=== PATIENT | female | born 1965 | race African-American/Black ===

== ENCOUNTER 2021-04-05 15:31 | Inpatient (IN) | payer MEDICARE ==
[~2021-04-05] VITALS: Ht 167.6 cm; Wt 157.4 kg
[2021-04-05] MEDS ORDERED: SODIUM CHLORIDE 0.9% 1,000 ML IV ONE (16:30)
[2021-04-05] MEDS ORDERED: DEXAMETHASONE 10 MG/ML VIAL IV ONE (16:30)
[2021-04-05 16:33] LABS: BASOPHILS % 0.6 % (0.0-2.0); EOSINOPHILS % 0.1 % (0.0-5.0); HEMATOCRIT. 40.1 % (36.0-48.0); HEMOGLOBIN. 13.3 g/dL (12.0-16.0); LYMPHOCYTES % 11.6 % (20.0-50.0); MEAN CORPUSCULAR HEMOGLOBIN 28.7 pg (28.0-32.0); MEAN CORPUSCULAR VOLUME 86.2 fL (81.0-99.0); MEAN PLATELET VOLUME 9.9 fl (7.4-10.4); MONOCYTES % 5.6 % (2.0-8.0); NEUTROPHILS % 82.1 % (40.0-76.0); PLATELET 254 x1000/uL (130-400); RED BLOOD CELL COUNT 4.65 mill/uL (4.2-5.4); RED CELL DISTRIBUTION WIDTH 14.9 % (11.6-14.6)
[2021-04-05 16:36] LABS: CHLORIDE 101 mEq/L (98-107)
[2021-04-05 16:58] LABS: BG BASE EXCESS 0.2 mmol/L (-2.0-2.0); BG CARBOXYHEMOGLOBIN 0.6 % (0.5-1.5); BG DEOXYHEMOGLOBIN 1.3 % (0.0-5.0); BG HCO3 ACT 24.6 mmol/L (22.0-26.0); BG OXYGEN SATURATION 98.7 % (92.0-98.5); BG OXYHEMOGLOBIN 98.1 % (94.0-97.0); BG PCO2 39.5 mmHg (35.0-45.0); BG PH 7.413 (7.350-7.450); BG PO2 137.8 mmHg (75.0-100.0); BG SAMPLE SITE RIGHT RADIAL; BG TOTAL HEMOGLOBIN 13.4 g/dL (12.0-18.0); BG VENT MODE MASK - NRB
[2021-04-05] MEDS ORDERED: DOXYCYCLINE HYCLATE 100 MG/VIAL IV ONE (17:00)
[2021-04-05] MEDS ORDERED: CEFTRIAXONE 1 G PREMIX 50 ML IV NR (17:00)
[2021-04-05] MEDS ORDERED: DOXYCYCLINE 100MG in DEXTROSE 5% WATER 100ML IV NR (17:15)
[2021-04-05 22:00] VITALS: BP 152/80
[2021-04-05] MEDS: MORPHINE SULFATE 2 MG/ML CPJ (NOT FOR IM USE) IV PRN (23:24)
[2021-04-05] MEDS: DIPHENHYDRAMINE 50MG/ML VIAL IV PRN (23:43)
[2021-04-06] VITALS: BP 146/82
[2021-04-06] MEDS: AZITHROMYCIN 500 MG in DEXT 5% WATER 250 ML IV SCH (01:14)
[2021-04-06] MEDS: SODIUM CHL 0.9% + KCL 20MEQ/L 1,000 ML IV SCH ×2 (01:14→17:13)
[2021-04-06] MEDS: ZOLPIDEM TARTRATE 5MG TABLET PO PRN ×2 (01:49→20:35)
[2021-04-06 04:00] VITALS: BP 144/79
[2021-04-06 08:00] VITALS: BP 139/85
[2021-04-06] MEDS ORDERED: ENOXAPARIN 30MG/0.3ML SYR SUBCUT SCH (09:00)
[2021-04-06] MEDS: DEXAMETHASONE 10 MG/ML VIAL IV SCH (09:20)
[2021-04-06] MEDS: FAMOTIDINE 20MG TABLET PO SCH ×2 (09:21→20:34)
[2021-04-06 09:25] LABS: BASOPHILS % 0.5 % (0.0-2.0); HEMATOCRIT. 40.2 % (36.0-48.0); HEMOGLOBIN. 12.9 g/dL (12.0-16.0); LYMPHOCYTES % 10.3 % (20.0-50.0); MEAN CORPUSCULAR HEMOGLOBIN 28.3 pg (28.0-32.0); MEAN CORPUSCULAR VOLUME 88.4 fL (81.0-99.0); MEAN PLATELET VOLUME 10.2 fl (7.4-10.4); MONOCYTES % 3.3 % (2.0-8.0); NEUTROPHILS % 85.9 % (40.0-76.0); PLATELET 269 x1000/uL (130-400); RED BLOOD CELL COUNT 4.55 mill/uL (4.2-5.4); RED CELL DISTRIBUTION WIDTH 15.1 % (11.6-14.6)
[2021-04-06] MEDS: MORPHINE SULFATE 2 MG/ML CPJ (NOT FOR IM USE) IV PRN (09:32)
[2021-04-06 09:36] LABS: CHLORIDE 104 mEq/L (98-107)
[2021-04-06 09:46] LABS: CREATINE KINASE 380 IU/L (26-192)
[2021-04-06 09:49] LABS: CREATINE KINASE MB FRACTION 2.4 ng/mL (0.5-3.6)
[2021-04-06] MEDS: ALBUTEROL 6.7GM HFA INHALER ORI SCH ×2 (11:20→17:13)
[2021-04-06 12:00] VITALS: BP 126/86
[2021-04-06] MEDS: DIPHENHYDRAMINE 50MG/ML VIAL IV PRN ×2 (12:56→20:35)
[2021-04-06 16:00] VITALS: BP 123/81
[2021-04-06 16:40] LABS: CREATINE KINASE MB FRACTION 3.5 ng/mL (0.5-3.6)
[2021-04-06 16:41] LABS: CREATINE KINASE 319 IU/L (26-192)
[2021-04-06] MEDS ORDERED: CEFTRIAXONE 1 G PREMIX 50 ML IV SCH (17:00)
[2021-04-06] MEDS: CEFTRIAXONE 1,000 MG in DEXTROSE 5% WATER 50 ML IV SCH (17:13)
[2021-04-06 20:00] VITALS: BP 137/74
[2021-04-06] MEDS: ENOXAPARIN 40MG/0.4ML SYR SUBCUT SCH (20:34)
[2021-04-06] MEDS ORDERED: PROCHLORPERAZINE 10MG/2ML VIAL IV PRN (21:30)
[2021-04-06] MEDS ORDERED: MORPHINE SULFATE 2 MG/ML CPJ (NOT FOR IM USE) IV PRN (21:30)
[2021-04-06] MEDS ORDERED: NALOXONE HCL 0.4MG/ML VIAL IV PRN (21:45)
[2021-04-07] VITALS: BP 99/44
[2021-04-07] MEDS: AZITHROMYCIN 500 MG in DEXT 5% WATER 250 ML IV SCH ×2 (00:05→23:25)
[2021-04-07] MEDS: ACETAMINOPHEN 325MG TABLET PO PRN ×2 (03:48→22:21)
[2021-04-07 04:00] VITALS: BP 154/83
[2021-04-07 07:29] LABS: BASOPHILS % 0.2 % (0.0-2.0); HEMATOCRIT. 43.7 % (36.0-48.0); HEMOGLOBIN. 13.6 g/dL (12.0-16.0); LYMPHOCYTES % 9.8 % (20.0-50.0); MEAN CORPUSCULAR HEMOGLOBIN 28.4 pg (28.0-32.0); MEAN CORPUSCULAR VOLUME 91.3 fL (81.0-99.0); MEAN PLATELET VOLUME 10.3 fl (7.4-10.4); MONOCYTES % 4.6 % (2.0-8.0); NEUTROPHILS % 85.4 % (40.0-76.0); PLATELET 336 x1000/uL (130-400); RED BLOOD CELL COUNT 4.79 mill/uL (4.2-5.4); RED CELL DISTRIBUTION WIDTH 15.1 % (11.6-14.6)
[2021-04-07 07:39] LABS: CHLORIDE 108 mEq/L (98-107)
[2021-04-07 07:51] LABS: CREATINE KINASE 203 IU/L (26-192)
[2021-04-07 07:52] LABS: CREATINE KINASE MB FRACTION 2.6 ng/mL (0.5-3.6)
[2021-04-07 08:00] VITALS: BP 121/96
[2021-04-07] MEDS: FAMOTIDINE 20MG TABLET PO SCH ×2 (09:25→22:21)
[2021-04-07] MEDS: ENOXAPARIN 40MG/0.4ML SYR SUBCUT SCH ×2 (09:26→22:21)
[2021-04-07] MEDS: DEXAMETHASONE 10 MG/ML VIAL IV SCH (09:26)
[2021-04-07] MEDS: ALBUTEROL 6.7GM HFA INHALER ORI SCH ×3 (09:27→22:28)
[2021-04-07] MEDS: LORAZEPAM 0.5MG TABLET PO PRN ×2 (11:28→22:21)
[2021-04-07] MEDS ORDERED: LIDOCAINE HCL/PF 1% 2ML VIAL ONE (14:34)
[2021-04-07 15:11] LABS: BG BASE EXCESS 1.7 mmol/L (-2.0-2.0); BG CARBOXYHEMOGLOBIN 0.5 % (0.5-1.5); BG DEOXYHEMOGLOBIN 5.5 % (0.0-5.0); BG METHEMOGLOBIN 0.1 % (0.0-1.5); BG OXYGEN SATURATION 94.5 % (92.0-98.5); BG OXYHEMOGLOBIN 93.9 % (94.0-97.0); BG PCO2 39.6 mmHg (35.0-45.0); BG PH 7.435 (7.350-7.450); BG PO2 70.6 mmHg (75.0-100.0); BG SAMPLE SITE RIGHT RADIAL; BG TOTAL HEMOGLOBIN 14.4 g/dL (12.0-18.0); BG VENT MODE MASK - NRB
[2021-04-07] MEDS ORDERED: HYDROCORTISONE 1% RECTAL CREAM 30GM PR PRN (15:15)
[2021-04-07] MEDS: CEFTRIAXONE 1,000 MG in DEXTROSE 5% WATER 50 ML IV SCH (15:39)
[2021-04-07 16:00] VITALS: BP 130/75
[2021-04-07] MEDS: ONDANSETRON HCL 4MG/2ML INJ IV PRN (18:37)
[2021-04-07] MEDS: GUAIFENESIN-DM 200MG-20MG/10ML UDC PO PRN ×2 (18:38→23:24)
[2021-04-07 20:00] VITALS: BP 145/71
[2021-04-07] MEDS: ZOLPIDEM TARTRATE 5MG TABLET PO PRN (22:21)
[2021-04-08] VITALS: BP 146/48
[2021-04-08] MEDS: DIPHENHYDRAMINE 50MG/ML VIAL IV PRN (01:17)
[2021-04-08] MEDS: LORAZEPAM 0.5MG TABLET PO PRN (03:51)
[2021-04-08] MEDS: ACETAMINOPHEN 325MG TABLET PO PRN ×2 (03:51→16:17)
[2021-04-08 04:00] VITALS: BP 160/97
[2021-04-08 05:00] LABS: BG BASE EXCESS 4.7 mmol/L (-2.0-2.0); BG CARBOXYHEMOGLOBIN 0.5 % (0.5-1.5); BG DEOXYHEMOGLOBIN 2.5 % (0.0-5.0); BG FRACTION INSPIRED OXYGEN 100; BG HCO3 ACT 30.2 mmol/L (22.0-26.0); BG METHEMOGLOBIN 0.4 % (0.0-1.5); BG OXYGEN SATURATION 97.5 % (92.0-98.5); BG OXYHEMOGLOBIN 96.6 % (94.0-97.0); BG PCO2 48.1 mmHg (35.0-45.0); BG PH 7.416 (7.350-7.450); BG PO2 99.5 mmHg (75.0-100.0); BG SAMPLE SITE RIGHT RADIAL; BG TOTAL HEMOGLOBIN 14.1 g/dL (12.0-18.0); BG VENT MODE MASK - BIPAP
[2021-04-08 08:00] VITALS: BP 110/80
[2021-04-08] MEDS: DEXAMETHASONE 10 MG/ML VIAL IV SCH ×2 (09:00→12:48)
[2021-04-08] MEDS: ALBUTEROL 6.7GM HFA INHALER ORI SCH ×4 (09:00→20:55)
[2021-04-08] MEDS: FAMOTIDINE 20MG TABLET PO SCH ×2 (09:53→20:54)
[2021-04-08] MEDS: ENOXAPARIN 40MG/0.4ML SYR SUBCUT SCH ×2 (09:53→20:55)
[2021-04-08 12:00] VITALS: BP 132/76
[2021-04-08] MEDS: CEFTRIAXONE 1,000 MG in DEXTROSE 5% WATER 50 ML IV SCH (15:50)
[2021-04-08 16:00] VITALS: BP 152/77
[2021-04-08 20:00] VITALS: BP 110/57
[2021-04-09] VITALS: BP 114/66
[2021-04-09] MEDS: AZITHROMYCIN 500 MG in DEXT 5% WATER 250 ML IV SCH (00:13)
[2021-04-09] MEDS: ACETAMINOPHEN 325MG TABLET PO PRN ×3 (00:13→16:28)
[2021-04-09 04:00] VITALS: BP 135/74
[2021-04-09 08:00] VITALS: BP 140/81
[2021-04-09] MEDS: FAMOTIDINE 20MG TABLET PO SCH ×2 (08:35→20:06)
[2021-04-09] MEDS: ENOXAPARIN 40MG/0.4ML SYR SUBCUT SCH ×2 (08:36→20:14)
[2021-04-09] MEDS: DEXAMETHASONE 10 MG/ML VIAL IV SCH (08:36)
[2021-04-09] MEDS: ALBUTEROL 6.7GM HFA INHALER ORI SCH ×4 (08:36→20:14)
[2021-04-09 12:00] VITALS: BP 92/52
[2021-04-09 16:00] VITALS: BP 119/63
[2021-04-09] MEDS: CEFTRIAXONE 1,000 MG in DEXTROSE 5% WATER 50 ML IV SCH (16:03)
[2021-04-09 16:07] LABS: BG BASE EXCESS 5.1 mmol/L (-2.0-2.0); BG CARBOXYHEMOGLOBIN 0.3 % (0.5-1.5); BG DEOXYHEMOGLOBIN 4.9 % (0.0-5.0); BG FRACTION INSPIRED OXYGEN 100; BG HCO3 ACT 30.1 mmol/L (22.0-26.0); BG METHEMOGLOBIN 1.1 % (0.0-1.5); BG OXYHEMOGLOBIN 93.7 % (94.0-97.0); BG PCO2 46.1 mmHg (35.0-45.0); BG PH 7.433 (7.350-7.450); BG PO2 79.6 mmHg (75.0-100.0); BG SAMPLE SITE RIGHT RADIAL; BG TOTAL HEMOGLOBIN 12.9 g/dL (12.0-18.0); BG TOTAL RESPIRATORY RATE 44 b/min; BG VENT MODE MASK - BIPAP
[2021-04-09 20:00] VITALS: BP 112/69
[2021-04-09] MEDS: DIPHENHYDRAMINE 50MG/ML VIAL IV PRN (20:05)
[2021-04-09] MEDS: ONDANSETRON HCL 4MG/2ML INJ IV PRN (20:33)
[2021-04-10] VITALS: BP 110/67
[2021-04-10] MEDS: AZITHROMYCIN 500 MG in DEXT 5% WATER 250 ML IV SCH (00:15)
[2021-04-10 04:00] VITALS: BP 112/73
[2021-04-10] MEDS ORDERED: LIDOCAINE HCL/PF 1% 2ML VIAL ONE (05:00)
[2021-04-10 07:54] LABS: BASOPHILS % 0.2 % (0.0-2.0); EOSINOPHILS % 0.1 % (0.0-5.0); HEMATOCRIT. 36.6 % (36.0-48.0); HEMOGLOBIN. 11.6 g/dL (12.0-16.0); LYMPHOCYTES % 7.6 % (20.0-50.0); MEAN CORPUSCULAR HEMOGLOBIN 28.1 pg (28.0-32.0); MEAN CORPUSCULAR VOLUME 88.3 fL (81.0-99.0); MEAN PLATELET VOLUME 9.8 fl (7.4-10.4); NEUTROPHILS % 89.1 % (40.0-76.0); PLATELET 329 x1000/uL (130-400); RED BLOOD CELL COUNT 4.15 mill/uL (4.2-5.4)
[2021-04-10 08:00] VITALS: BP 135/72
[2021-04-10 08:12] LABS: CHLORIDE 105 mEq/L (98-107)
[2021-04-10] MEDS: ALBUTEROL 6.7GM HFA INHALER ORI SCH ×4 (09:00→20:28)
[2021-04-10] MEDS: FAMOTIDINE 20MG TABLET PO SCH ×2 (09:00→20:28)
[2021-04-10] MEDS: DEXAMETHASONE 10 MG/ML VIAL IV SCH (09:00)
[2021-04-10] MEDS: ENOXAPARIN 40MG/0.4ML SYR SUBCUT SCH ×2 (09:01→20:28)
[2021-04-10 12:00] VITALS: BP 126/75
[2021-04-10 13:36] LABS: BG BASE EXCESS 5.6 mmol/L (-2.0-2.0); BG CARBOXYHEMOGLOBIN 1.1 % (0.5-1.5); BG DEOXYHEMOGLOBIN 2.4 % (0.0-5.0); BG FRACTION INSPIRED OXYGEN 100; BG HCO3 ACT 30.3 mmol/L (22.0-26.0); BG METHEMOGLOBIN 0.4 % (0.0-1.5); BG OXYGEN SATURATION 97.6 % (92.0-98.5); BG OXYHEMOGLOBIN 96.1 % (94.0-97.0); BG PCO2 44.7 mmHg (35.0-45.0); BG PH 7.449 (7.350-7.450); BG PO2 98.8 mmHg (75.0-100.0); BG SAMPLE SITE RIGHT RADIAL; BG TOTAL HEMOGLOBIN 12.9 g/dL (12.0-18.0); BG VENT MODE MASK - BIPAP
[2021-04-10 16:00] VITALS: BP 111/64
[2021-04-10 20:00] VITALS: BP 126/68
[2021-04-10] MEDS: ACETAMINOPHEN 325MG TABLET PO PRN (20:39)
[2021-04-11] VITALS: BP 119/62
[2021-04-11] MEDS: LORAZEPAM 0.5MG TABLET PO PRN ×3 (00:49→20:14)
[2021-04-11] MEDS: AZITHROMYCIN 500 MG in DEXT 5% WATER 250 ML IV SCH (00:49)
[2021-04-11 04:00] VITALS: BP 124/68
[2021-04-11] MEDS: GUAIFENESIN-DM 200MG-20MG/10ML UDC PO PRN (04:24)
[2021-04-11 07:24] LABS: CHLORIDE 106 mEq/L (98-107)
[2021-04-11 07:39] LABS: BASOPHILS % 0.2 % (0.0-2.0); EOSINOPHILS % 0.1 % (0.0-5.0); HEMATOCRIT. 38.4 % (36.0-48.0); HEMOGLOBIN. 12.4 g/dL (12.0-16.0); LYMPHOCYTES % 10.3 % (20.0-50.0); MEAN CORPUSCULAR HEMOGLOBIN 28.5 pg (28.0-32.0); MEAN CORPUSCULAR VOLUME 88.4 fL (81.0-99.0); MEAN PLATELET VOLUME 9.4 fl (7.4-10.4); MONOCYTES % 4.3 % (2.0-8.0); NEUTROPHILS % 85.1 % (40.0-76.0); PLATELET 361 x1000/uL (130-400); RED BLOOD CELL COUNT 4.34 mill/uL (4.2-5.4); RED CELL DISTRIBUTION WIDTH 15.3 % (11.6-14.6)
[2021-04-11 08:00] VITALS: BP 115/72
[2021-04-11] MEDS: FAMOTIDINE 20MG TABLET PO SCH ×2 (08:49→20:14)
[2021-04-11] MEDS: DEXAMETHASONE 10 MG/ML VIAL IV SCH (08:49)
[2021-04-11] MEDS: ENOXAPARIN 40MG/0.4ML SYR SUBCUT SCH (08:49)
[2021-04-11] MEDS: ALBUTEROL 6.7GM HFA INHALER ORI SCH ×4 (08:49→22:13)
[2021-04-11] MEDS ORDERED: LIDOCAINE HCL/PF 1% 2ML VIAL ONE (10:38)
[2021-04-11 11:55] LABS: BG BASE EXCESS 1.9 mmol/L (-2.0-2.0); BG CARBOXYHEMOGLOBIN 0.5 % (0.5-1.5); BG DEOXYHEMOGLOBIN 4.6 % (0.0-5.0); BG FRACTION INSPIRED OXYGEN 100; BG HCO3 ACT 26.8 mmol/L (22.0-26.0); BG METHEMOGLOBIN 0.4 % (0.0-1.5); BG OXYGEN SATURATION 95.4 % (92.0-98.5); BG OXYHEMOGLOBIN 94.5 % (94.0-97.0); BG PCO2 42.6 mmHg (35.0-45.0); BG PH 7.416 (7.350-7.450); BG PO2 77.1 mmHg (75.0-100.0); BG SAMPLE SITE RIGHT RADIAL; BG TOTAL HEMOGLOBIN 13.2 g/dL (12.0-18.0); BG VENT MODE MASK - BIPAP
[2021-04-11 12:00] VITALS: BP 100/71
[2021-04-11] MEDS: ACETAMINOPHEN 325MG TABLET PO PRN ×2 (12:08→23:19)
[2021-04-11 16:00] VITALS: BP 116/62
[2021-04-11 20:00] VITALS: BP 127/71
[2021-04-11] MEDS: ENOXAPARIN 150MG/ML SYR SUBCUT SCH (20:13)
[2021-04-11 21:40] LABS: CLARITY URINE CLEAR (CLEAR); COLOR URINE YELLOW (YELLOW); KETONES URINE NEGATIVE (NEGATIVE); LEUKOCYTE ESTERASE URINE NEGATIVE (NEGATIVE); NITRITE URINE NEGATIVE (NEGATIVE); OCCULT BLOOD URINE 2+ (NEGATIVE); PH URINE 6.5 (4.5-8.0); PROTEIN URINE TRACE (NEGATIVE); SPECIFIC GRAVITY URINE 1.026 (1.005-1.030); UROBILINOGEN URINE 0.2 E.U./dL (0.2-1.0)
[2021-04-12] VITALS: BP 124/74
[2021-04-12 04:00] VITALS: BP 132/72
[2021-04-12] MEDS: ACETAMINOPHEN 325MG TABLET PO PRN ×2 (06:56→23:48)
[2021-04-12 08:00] VITALS: BP 111/57
[2021-04-12] MEDS: DEXAMETHASONE 10 MG/ML VIAL IV SCH (08:35)
[2021-04-12] MEDS: ENOXAPARIN 150MG/ML SYR SUBCUT SCH ×2 (08:35→21:05)
[2021-04-12] MEDS: FAMOTIDINE 20MG TABLET PO SCH ×2 (08:35→21:04)
[2021-04-12] MEDS: ALBUTEROL 6.7GM HFA INHALER ORI SCH ×2 (08:36→12:48)
[2021-04-12] MEDS ORDERED: LIDOCAINE HCL/PF 1% 2ML VIAL ONE (09:00)
[2021-04-12 09:51] LABS: BASOPHILS % 0.1 % (0.0-2.0); EOSINOPHILS % 0.9 % (0.0-5.0); HEMATOCRIT. 36.7 % (36.0-48.0); HEMOGLOBIN. 11.7 g/dL (12.0-16.0); LYMPHOCYTES % 9.5 % (20.0-50.0); MEAN CORPUSCULAR HEMOGLOBIN 28.2 pg (28.0-32.0); MEAN CORPUSCULAR VOLUME 88.5 fL (81.0-99.0); MEAN PLATELET VOLUME 9.1 fl (7.4-10.4); MONOCYTES % 3.8 % (2.0-8.0); NEUTROPHILS % 85.7 % (40.0-76.0); PLATELET 330 x1000/uL (130-400); RED BLOOD CELL COUNT 4.14 mill/uL (4.2-5.4); RED CELL DISTRIBUTION WIDTH 15.4 % (11.6-14.6)
[2021-04-12 09:58] LABS: CHLORIDE 104 mEq/L (98-107)
[2021-04-12 10:18] LABS: D-DIMER 25.09 mg/L FEU (<0.50); INR 1.1; PROTHROMBIN TIME 11.9 sec (9.6-11.0)
[2021-04-12 11:35] LABS: BG BASE EXCESS 2.9 mmol/L (-2.0-2.0); BG CARBOXYHEMOGLOBIN 0.7 % (0.5-1.5); BG DEOXYHEMOGLOBIN 6.3 % (0.0-5.0); BG HCO3 ACT 27.6 mmol/L (22.0-26.0); BG METHEMOGLOBIN 0.3 % (0.0-1.5); BG OXYGEN SATURATION 93.6 % (92.0-98.5); BG OXYHEMOGLOBIN 92.7 % (94.0-97.0); BG PCO2 42.5 mmHg (35.0-45.0); BG PO2 73.1 mmHg (75.0-100.0); BG SAMPLE SITE RIGHT BRACHIAL; BG TOTAL HEMOGLOBIN 13.3 g/dL (12.0-18.0)
[2021-04-12 11:52] VITALS: BP 93/65
[2021-04-12 11:58] LABS: CREATINE KINASE 37 IU/L (26-192)
[2021-04-12 11:59] LABS: CREATINE KINASE MB FRACTION < 1.0 ng/mL (0.5-3.6)
[2021-04-12] MEDS ORDERED: VANCOMYCIN 2,000 MG in DEXT 5% WATER 500 ML IV NR (13:00)
[2021-04-12] MEDS: MEROPENEM 1,000 MG in SODIUM CHLORIDE 0.9% 100 ML IV SCH ×2 (13:02→21:04)
[2021-04-12] MEDS ORDERED: HYDROCODONE/ACETAMINOPHEN 5/325MG TABLET PO PRN (14:15)
[2021-04-12] MEDS ORDERED: NALOXONE HCL 0.4MG/ML VIAL IV PRN (14:30)
[2021-04-12 16:00] VITALS: BP 118/60
[2021-04-12] MEDS: IPRATROPIUM/ALBUTEROL 0.5-3(2.5)MG/3ML NEB HHN SCH ×2 (16:27→20:00)
[2021-04-12 17:16] LABS: BG FRACTION INSPIRED OXYGEN 100
[2021-04-12 17:20] LABS: BG VENT MODE MASK BIPAP
[2021-04-12 20:00] VITALS: BP 106/59
[2021-04-13] VITALS: BP 130/68
[2021-04-13] MEDS ORDERED: VANCOMYCIN 1 G PREMIX 200 ML IV SCH (03:00)
[2021-04-13 04:00] VITALS: BP 130/68
[2021-04-13] MEDS: IPRATROPIUM/ALBUTEROL 0.5-3(2.5)MG/3ML NEB HHN SCH ×2 (04:00)
[2021-04-13] MEDS: MEROPENEM 1,000 MG in SODIUM CHLORIDE 0.9% 100 ML IV SCH ×3 (05:11→21:47)
[2021-04-13] MEDS: ALBUTEROL 6.7GM HFA INHALER ORI SCH ×6 (05:35→20:44)
[2021-04-13 08:00] VITALS: BP 149/76
[2021-04-13] MEDS: FAMOTIDINE 20MG TABLET PO SCH (08:36)
[2021-04-13] MEDS: DEXAMETHASONE 10 MG/ML VIAL IV SCH (08:36)
[2021-04-13] MEDS: ENOXAPARIN 150MG/ML SYR SUBCUT SCH ×2 (08:37→21:46)
[2021-04-13] MEDS: ACETAMINOPHEN 325MG TABLET PO PRN ×2 (08:37→23:08)
[2021-04-13] MEDS: LORAZEPAM 2MG/ML CPJ IV PRN (10:35)
[2021-04-13 12:00] VITALS: BP 116/54
[2021-04-13 12:52] LABS: BG BASE EXCESS 1.9 mmol/L (-2.0-2.0); BG CARBOXYHEMOGLOBIN 0.8 % (0.5-1.5); BG DEOXYHEMOGLOBIN 8.7 % (0.0-5.0); BG FRACTION INSPIRED OXYGEN 100; BG HCO3 ACT 26.3 mmol/L (22.0-26.0); BG METHEMOGLOBIN 0.4 % (0.0-1.5); BG OXYGEN SATURATION 91.2 % (92.0-98.5); BG OXYHEMOGLOBIN 90.1 % (94.0-97.0); BG PCO2 40.3 mmHg (35.0-45.0); BG PH 7.432 (7.350-7.450); BG PO2 60.3 mmHg (75.0-100.0); BG SAMPLE SITE RIGHT RADIAL; BG TOTAL HEMOGLOBIN 12.4 g/dL (12.0-18.0); BG TOTAL RESPIRATORY RATE 37 b/min; BG VENT MODE MASK - BIPAP
[2021-04-13] MEDS ORDERED: FUROSEMIDE 40MG/4ML VIAL IVP SCH (13:00)
[2021-04-13 15:34] LABS: HEMATOCRIT. 35.8 % (36.0-48.0); HEMOGLOBIN. 11.6 g/dL (12.0-16.0); MEAN CORPUSCULAR HEMOGLOBIN 28.4 pg (28.0-32.0); MEAN CORPUSCULAR VOLUME 87.4 fL (81.0-99.0); MEAN PLATELET VOLUME 9.4 fl (7.4-10.4); PLATELET 328 x1000/uL (130-400); RED CELL DISTRIBUTION WIDTH 15.2 % (11.6-14.6)
[2021-04-13 15:55] LABS: CHLORIDE 100 mEq/L (98-107)
[2021-04-13 16:00] VITALS: BP 119/69
[2021-04-13 16:12] LABS: PLATELET ESTIMATE NORMAL
[2021-04-13] MEDS: VANCOMYCIN 1 G PREMIX 200 ML IV SCH (17:15)
[2021-04-13 20:00] VITALS: BP 145/90
[2021-04-14] VITALS: BP 136/78
[2021-04-14] MEDS: ALBUTEROL 6.7GM HFA INHALER ORI SCH ×4 (00:21→21:46)
[2021-04-14 04:00] VITALS: BP 80/59
[2021-04-14 05:11] LABS: BASOPHILS % 0.2 % (0.0-2.0); EOSINOPHILS % 0.3 % (0.0-5.0); HEMATOCRIT. 38.9 % (36.0-48.0); HEMOGLOBIN. 12.5 g/dL (12.0-16.0); LYMPHOCYTES % 9.8 % (20.0-50.0); MEAN CORPUSCULAR HEMOGLOBIN 28.4 pg (28.0-32.0); MEAN CORPUSCULAR VOLUME 88.3 fL (81.0-99.0); MEAN PLATELET VOLUME 9.5 fl (7.4-10.4); MONOCYTES % 3.4 % (2.0-8.0); NEUTROPHILS % 86.3 % (40.0-76.0); PLATELET 308 x1000/uL (130-400); RED BLOOD CELL COUNT 4.41 mill/uL (4.2-5.4); RED CELL DISTRIBUTION WIDTH 14.9 % (11.6-14.6)
[2021-04-14 05:53] LABS: CHLORIDE 103 mEq/L (98-107)
[2021-04-14 06:02] LABS: VANCOMYCIN TROUGH 4.5 ug/mL (5.0-10.0)
[2021-04-14] MEDS: VANCOMYCIN 1 G PREMIX 200 ML IV SCH (06:10)
[2021-04-14] MEDS: MEROPENEM 1,000 MG in SODIUM CHLORIDE 0.9% 100 ML IV SCH ×3 (06:11→21:45)
[2021-04-14 08:00] VITALS: BP 154/88
[2021-04-14] MEDS: IPRATROPIUM/ALBUTEROL 0.5-3(2.5)MG/3ML NEB HHN SCH ×3 (08:40→16:40)
[2021-04-14] MEDS: FAMOTIDINE 20MG/2ML VIAL IV SCH (08:47)
[2021-04-14] MEDS: DEXAMETHASONE 4MG/ML 1ML VIAL IV SCH (08:47)
[2021-04-14] MEDS: ENOXAPARIN 150MG/ML SYR SUBCUT SCH ×2 (08:48→21:47)
[2021-04-14] MEDS ORDERED: LIDOCAINE HCL/PF 1% 2ML VIAL ONE (09:00)
[2021-04-14 11:02] LABS: BG BASE EXCESS 2.3 mmol/L (-2.0-2.0); BG DEOXYHEMOGLOBIN 11.2 % (0.0-5.0); BG METHEMOGLOBIN 0.3 % (0.0-1.5); BG OXYGEN SATURATION 88.7 % (92.0-98.5); BG OXYHEMOGLOBIN 87.5 % (94.0-97.0); BG PCO2 37.7 mmHg (35.0-45.0); BG PH 7.457 (7.350-7.450); BG PO2 54.8 mmHg (75.0-100.0); BG SAMPLE SITE RIGHT RADIAL; BG TOTAL HEMOGLOBIN 13.7 g/dL (12.0-18.0); BG VENT MODE MASK - BIPAP
[2021-04-14 12:00] VITALS: BP 137/78
[2021-04-14] MEDS ORDERED: VANCOMYCIN 1 G PREMIX 200 ML IV SCH (14:00)
[2021-04-14] MEDS ORDERED: FUROSEMIDE 40MG/4ML VIAL IVP NR (14:15)
[2021-04-14 16:00] VITALS: BP 120/73
[2021-04-14 20:00] VITALS: BP 95/49
[2021-04-15] VITALS (7 sets, daily range): BP systolic 92–135; BP diastolic 48–75
[2021-04-15] MEDS: MEROPENEM 1,000 MG in SODIUM CHLORIDE 0.9% 100 ML IV SCH ×3 (05:38→22:34)
[2021-04-15 06:27] LABS: CHLORIDE 104 mEq/L (98-107)
[2021-04-15 06:38] LABS: VANCOMYCIN TROUGH 8.2 ug/mL (5.0-10.0)
[2021-04-15] MEDS: FAMOTIDINE 20MG/2ML VIAL IV SCH (08:12)
[2021-04-15] MEDS: DEXAMETHASONE 4MG/ML 1ML VIAL IV SCH (08:12)
[2021-04-15] MEDS: ALBUTEROL 6.7GM HFA INHALER ORI SCH ×4 (08:13→22:34)
[2021-04-15] MEDS: ENOXAPARIN 150MG/ML SYR SUBCUT SCH ×2 (08:13→22:34)
[2021-04-15 09:35] LABS: BASOPHILS % 0.6 % (0.0-2.0); EOSINOPHILS % 1.2 % (0.0-5.0); HEMATOCRIT. 40.7 % (36.0-48.0); HEMOGLOBIN. 13.1 g/dL (12.0-16.0); LYMPHOCYTES % 7.8 % (20.0-50.0); MEAN CORPUSCULAR HEMOGLOBIN 28.6 pg (28.0-32.0); MEAN CORPUSCULAR VOLUME 88.5 fL (81.0-99.0); MONOCYTES % 5.3 % (2.0-8.0); NEUTROPHILS % 85.1 % (40.0-76.0); PLATELET 380 x1000/uL (130-400); RED CELL DISTRIBUTION WIDTH 15.1 % (11.6-14.6)
[2021-04-15 13:01] LABS: BG BASE EXCESS 6.3 mmol/L (-2.0-2.0); BG CARBOXYHEMOGLOBIN 0.8 % (0.5-1.5); BG DEOXYHEMOGLOBIN 6.3 % (0.0-5.0); BG FRACTION INSPIRED OXYGEN 100; BG HCO3 ACT 30.7 mmol/L (22.0-26.0); BG METHEMOGLOBIN 0.3 % (0.0-1.5); BG OXYGEN SATURATION 93.6 % (92.0-98.5); BG OXYHEMOGLOBIN 92.6 % (94.0-97.0); BG PCO2 43.5 mmHg (35.0-45.0); BG PH 7.467 (7.350-7.450); BG PO2 65.7 mmHg (75.0-100.0); BG SAMPLE SITE RIGHT RADIAL; BG TOTAL HEMOGLOBIN 12.8 g/dL (12.0-18.0); BG TOTAL RESPIRATORY RATE 28 b/min; BG VENT MODE MASK - BIPAP
[2021-04-15] MEDS: ONDANSETRON HCL 4MG/2ML INJ IV PRN (18:25)
[2021-04-15] MEDS: LORAZEPAM 2MG/ML CPJ IV PRN (22:46)
[2021-04-16] VITALS (24 sets, daily range): BP systolic 92–153; BP diastolic 32–89
[2021-04-16] MEDS: MEROPENEM 1,000 MG in SODIUM CHLORIDE 0.9% 100 ML IV SCH ×3 (05:02→21:17)
[2021-04-16 07:26] LABS: BASOPHILS % 0.3 % (0.0-2.0); HEMATOCRIT. 36.1 % (36.0-48.0); HEMOGLOBIN. 11.6 g/dL (12.0-16.0); MEAN CORPUSCULAR HEMOGLOBIN 28.3 pg (28.0-32.0); MEAN CORPUSCULAR VOLUME 87.8 fL (81.0-99.0); MEAN PLATELET VOLUME 9.6 fl (7.4-10.4); MONOCYTES % 5.7 % (2.0-8.0); PLATELET 431 x1000/uL (130-400); RED BLOOD CELL COUNT 4.11 mill/uL (4.2-5.4); RED CELL DISTRIBUTION WIDTH 15.3 % (11.6-14.6)
[2021-04-16] MEDS ORDERED: LIDOCAINE HCL/PF 1% 2ML VIAL ONE (07:26)
[2021-04-16 07:29] LABS: CHLORIDE 106 mEq/L (98-107)
[2021-04-16] MEDS: FAMOTIDINE 20MG/2ML VIAL IV SCH (08:06)
[2021-04-16] MEDS: DEXAMETHASONE 4MG/ML 1ML VIAL IV SCH (08:06)
[2021-04-16] MEDS: ENOXAPARIN 150MG/ML SYR SUBCUT SCH ×2 (08:06→21:18)
[2021-04-16] MEDS: ALBUTEROL 6.7GM HFA INHALER ORI SCH ×2 (08:07→14:49)
[2021-04-16 09:05] LABS: BG BASE EXCESS 5.5 mmol/L (-2.0-2.0); BG CARBOXYHEMOGLOBIN 0.8 % (0.5-1.5); BG DEOXYHEMOGLOBIN 11.5 % (0.0-5.0); BG FRACTION INSPIRED OXYGEN 100; BG HCO3 ACT 30.8 mmol/L (22.0-26.0); BG METHEMOGLOBIN 0.2 % (0.0-1.5); BG OXYGEN SATURATION 88.4 % (92.0-98.5); BG OXYHEMOGLOBIN 87.5 % (94.0-97.0); BG PCO2 48.2 mmHg (35.0-45.0); BG PH 7.424 (7.350-7.450); BG PO2 54.3 mmHg (75.0-100.0); BG SAMPLE SITE RIGHT RADIAL; BG TOTAL HEMOGLOBIN 12.9 g/dL (12.0-18.0); BG VENT MODE MASK - BIPAP
[2021-04-17] VITALS (93 sets, daily range): BP systolic 54–182; BP diastolic 22–112
[2021-04-17] MEDS: ALBUTEROL 6.7GM HFA INHALER ORI SCH (00:12)
[2021-04-17 03:40] LABS: BG BASE EXCESS 1.7 mmol/L (-2.0-2.0); BG CARBOXYHEMOGLOBIN 0.8 % (0.5-1.5); BG DEOXYHEMOGLOBIN 52.1 % (0.0-5.0); BG FRACTION INSPIRED OXYGEN 100; BG HCO3 ACT 27.6 mmol/L (22.0-26.0); BG METHEMOGLOBIN 0.4 % (0.0-1.5); BG OXYGEN SATURATION 47.3 % (92.0-98.5); BG OXYHEMOGLOBIN 46.7 % (94.0-97.0); BG PH 7.377 (7.350-7.450); BG PO2 < 30.3 mmHg (75.0-100.0); BG SAMPLE SITE RIGHT RADIAL; BG TOTAL HEMOGLOBIN 13.9 g/dL (12.0-18.0); BG VENT MODE MASK - BIPAP
[2021-04-17] MEDS ORDERED: NOREPINEPHRINE 8 MG in DEXT 5% WATER 242 ML IV PRN (04:00)
[2021-04-17] MEDS: PROPOFOL 10MG/ML 100ML 100 ML IV PRN ×8 (04:07→22:20)
[2021-04-17 05:56] LABS: BG BASE EXCESS -4.4 mmol/L (-2.0-2.0); BG CARBOXYHEMOGLOBIN 0.7 % (0.5-1.5); BG DEOXYHEMOGLOBIN 45.5 % (0.0-5.0); BG FRACTION INSPIRED OXYGEN 100; BG HCO3 ACT 22.5 mmol/L (22.0-26.0); BG METHEMOGLOBIN 0.3 % (0.0-1.5); BG OXYHEMOGLOBIN 53.5 % (94.0-97.0); BG PCO2 48.6 mmHg (35.0-45.0); BG PH 7.284 (7.350-7.450); BG PO2 34.3 mmHg (75.0-100.0); BG SAMPLE SITE RIGHT RADIAL; BG TOTAL HEMOGLOBIN 13.9 g/dL (12.0-18.0); BG VENT MODE VENT - AC
[2021-04-17] MEDS: MEROPENEM 1,000 MG in SODIUM CHLORIDE 0.9% 100 ML IV SCH (06:12)
[2021-04-17] MEDS ORDERED: SODIUM BICARBONATE 8.4% 1 MEQ/ML 50ML SYR IV NR (07:51)
[2021-04-17] MEDS: FAMOTIDINE 20MG/2ML VIAL IV SCH (08:00)
[2021-04-17] MEDS: DEXAMETHASONE 4MG/ML 1ML VIAL IV SCH (08:00)
[2021-04-17] MEDS: ENOXAPARIN 150MG/ML SYR SUBCUT SCH ×2 (08:00→20:15)
[2021-04-17] MEDS: MIDAZOLAM HCL 100 MG in SODIUM CHLORIDE 0.9% 80 ML IV PRN ×2 (08:01→14:29)
[2021-04-17] MEDS: FENTANYL CITRATE/PF 2,500 MCG in SODIUM CHLORIDE 0.9% 200 ML IV PRN ×3 (08:03→20:16)
[2021-04-17] MEDS: IPRATROPIUM/ALBUTEROL 0.5-3(2.5)MG/3ML NEB HHN SCH ×4 (08:13→21:54)
[2021-04-17] MEDS ORDERED: SUCCINYLCHOLINE CHLORIDE 200MG/10ML IV ONE (08:30)
[2021-04-17] MEDS ORDERED: ETOMIDATE 2MG/ML 10ML VIAL IV ONE (08:30)
[2021-04-17] MEDS ORDERED: VECURONIUM BROMIDE 10 MG/VIAL IV ONE (09:08)
[2021-04-17 09:50] LABS: BG BASE EXCESS 2.6 mmol/L (-2.0-2.0); BG CARBOXYHEMOGLOBIN 1.1 % (0.5-1.5); BG DEOXYHEMOGLOBIN 42.6 % (0.0-5.0); BG FRACTION INSPIRED OXYGEN 100; BG HCO3 ACT 30.2 mmol/L (22.0-26.0); BG METHEMOGLOBIN 0.1 % (0.0-1.5); BG OXYGEN SATURATION 56.9 % (92.0-98.5); BG OXYHEMOGLOBIN 56.2 % (94.0-97.0); BG PCO2 59.4 mmHg (35.0-45.0); BG PH 7.324 (7.350-7.450); BG PO2 33.8 mmHg (75.0-100.0); BG SAMPLE SITE RIGHT RADIAL; BG VENT MODE VENT - AC
[2021-04-17] MEDS: NOREPINEPHRINE 32 MG in DEXT 5% WATER 218 ML IV PRN (10:33)
[2021-04-17] MEDS: PHENYLEPHRINE 100 MG in DEXT 5% WATER 240 ML IV PRN ×3 (11:01→22:49)
[2021-04-17 12:40] LABS: BG BASE EXCESS 0.6 mmol/L (-2.0-2.0); BG CARBOXYHEMOGLOBIN 1.1 % (0.5-1.5); BG DEOXYHEMOGLOBIN 5.9 % (0.0-5.0); BG FRACTION INSPIRED OXYGEN 100; BG METHEMOGLOBIN 0.2 % (0.0-1.5); BG OXYHEMOGLOBIN 92.8 % (94.0-97.0); BG PCO2 50.7 mmHg (35.0-45.0); BG PH 7.345 (7.350-7.450); BG PO2 77.1 mmHg (75.0-100.0); BG SAMPLE SITE RIGHT RADIAL; BG TOTAL HEMOGLOBIN 13.3 g/dL (12.0-18.0); BG VENT MODE VENT - P/C
[2021-04-17 18:56] LABS: BASOPHILS % 0.2 % (0.0-2.0); EOSINOPHILS % 0.1 % (0.0-5.0); HEMOGLOBIN. 11.7 g/dL (12.0-16.0); LYMPHOCYTES % 10.6 % (20.0-50.0); MEAN CORPUSCULAR HEMOGLOBIN 28.3 pg (28.0-32.0); MEAN CORPUSCULAR VOLUME 89.8 fL (81.0-99.0); MEAN PLATELET VOLUME 9.8 fl (7.4-10.4); MONOCYTES % 4.3 % (2.0-8.0); NEUTROPHILS % 84.8 % (40.0-76.0); PLATELET 557 x1000/uL (130-400); RED BLOOD CELL COUNT 4.12 mill/uL (4.2-5.4); RED CELL DISTRIBUTION WIDTH 15.3 % (11.6-14.6)
[2021-04-17 19:04] LABS: CHLORIDE 103 mEq/L (98-107)
[2021-04-18] VITALS (92 sets, daily range): BP systolic 65–180; BP diastolic 13–123
[2021-04-18] MEDS: IPRATROPIUM/ALBUTEROL 0.5-3(2.5)MG/3ML NEB HHN SCH ×4 (01:05→20:12)
[2021-04-18] MEDS: MIDAZOLAM HCL 100 MG in SODIUM CHLORIDE 0.9% 80 ML IV PRN ×2 (01:24→22:47)
[2021-04-18] MEDS: FENTANYL CITRATE/PF 2,500 MCG in SODIUM CHLORIDE 0.9% 200 ML IV PRN ×2 (04:17→20:27)
[2021-04-18] MEDS: PHENYLEPHRINE 100 MG in DEXT 5% WATER 240 ML IV PRN ×4 (04:19→21:32)
[2021-04-18 08:20] LABS: BG BASE EXCESS 5.9 mmol/L (-2.0-2.0); BG CARBOXYHEMOGLOBIN 0.2 % (0.5-1.5); BG DEOXYHEMOGLOBIN 3.7 % (0.0-5.0); BG HCO3 ACT 27.5 mmol/L (22.0-26.0); BG METHEMOGLOBIN 0.2 % (0.0-1.5); BG OXYGEN SATURATION 96.3 % (92.0-98.5); BG OXYHEMOGLOBIN 95.9 % (94.0-97.0); BG PCO2 30.8 mmHg (35.0-45.0); BG PH 7.568 (7.350-7.450); BG PO2 83.5 mmHg (75.0-100.0); BG SAMPLE SITE RIGHT RADIAL; BG VENT MODE VENT - P/C
[2021-04-18] MEDS: NOREPINEPHRINE 32 MG in DEXT 5% WATER 218 ML IV PRN (09:38)
[2021-04-18 11:04] LABS: BG BASE EXCESS 2.4 mmol/L (-2.0-2.0); BG CARBOXYHEMOGLOBIN 0.3 % (0.5-1.5); BG DEOXYHEMOGLOBIN 0.8 % (0.0-5.0); BG FRACTION INSPIRED OXYGEN 100; BG HCO3 ACT 26.2 mmol/L (22.0-26.0); BG METHEMOGLOBIN 0.3 % (0.0-1.5); BG OXYGEN SATURATION 99.2 % (92.0-98.5); BG OXYHEMOGLOBIN 98.6 % (94.0-97.0); BG PCO2 38.1 mmHg (35.0-45.0); BG PH 7.456 (7.350-7.450); BG PO2 202.5 mmHg (75.0-100.0); BG SAMPLE SITE RIGHT RADIAL; BG TOTAL HEMOGLOBIN 13.7 g/dL (12.0-18.0); BG TOTAL RESPIRATORY RATE 32 b/min; BG VENT MODE VENT - P/C
[2021-04-18] MEDS ORDERED: LIDOCAINE HCL/EPINEPHRINE 1%-EPI 1:100,000 20 ML VIAL INFIL NR (15:00)
[2021-04-18 16:25] LABS: BG BASE EXCESS 3.4 mmol/L (-2.0-2.0); BG CARBOXYHEMOGLOBIN 0.5 % (0.5-1.5); BG DEOXYHEMOGLOBIN 5.4 % (0.0-5.0); BG HCO3 ACT 25.9 mmol/L (22.0-26.0); BG METHEMOGLOBIN 0.1 % (0.0-1.5); BG OXYGEN SATURATION 94.6 % (92.0-98.5); BG PCO2 32.8 mmHg (35.0-45.0); BG PH 7.515 (7.350-7.450); BG PO2 72.8 mmHg (75.0-100.0); BG SAMPLE SITE RIGHT RADIAL; BG TOTAL HEMOGLOBIN 13.2 g/dL (12.0-18.0); BG VENT MODE VENT - P/C
[2021-04-18 21:02] LABS: CHLORIDE 108 mEq/L (98-107)
[2021-04-18 21:04] LABS: BASOPHILS % 0.6 % (0.0-2.0); EOSINOPHILS % 1.3 % (0.0-5.0); HEMATOCRIT. 40.3 % (36.0-48.0); HEMOGLOBIN. 12.5 g/dL (12.0-16.0); LYMPHOCYTES % 18.7 % (20.0-50.0); MEAN CORPUSCULAR VOLUME 89.9 fL (81.0-99.0); MEAN PLATELET VOLUME 10.4 fl (7.4-10.4); MONOCYTES % 2.8 % (2.0-8.0); NEUTROPHILS % 76.6 % (40.0-76.0); PLATELET 397 x1000/uL (130-400); RED BLOOD CELL COUNT 4.48 mill/uL (4.2-5.4); RED CELL DISTRIBUTION WIDTH 15.4 % (11.6-14.6)
[2021-04-18] MEDS: ENOXAPARIN 150MG/ML SYR SUBCUT SCH (21:23)
[2021-04-18] MEDS: ACETAMINOPHEN 325MG TABLET PO PRN (21:32)
[2021-04-19] VITALS (100 sets, daily range): BP systolic 46–180; BP diastolic 24–100
[2021-04-19] MEDS: MEROPENEM 500 MG in SODIUM CHLORIDE 0.9% 50 ML IV SCH ×4 (00:14→21:09)
[2021-04-19] MEDS: PHENYLEPHRINE 100 MG in DEXT 5% WATER 240 ML IV PRN ×3 (03:27→16:42)
[2021-04-19] MEDS: FENTANYL CITRATE/PF 2,500 MCG in SODIUM CHLORIDE 0.9% 200 ML IV PRN ×3 (03:28→19:40)
[2021-04-19] MEDS: IPRATROPIUM/ALBUTEROL 0.5-3(2.5)MG/3ML NEB HHN SCH ×6 (04:49→20:14)
[2021-04-19 05:42] LABS: CHLORIDE 106 mEq/L (98-107); HEMATOCRIT. 36.2 % (36.0-48.0); HEMOGLOBIN. 11.4 g/dL (12.0-16.0); MEAN CORPUSCULAR HEMOGLOBIN 28.5 pg (28.0-32.0); MEAN CORPUSCULAR VOLUME 90.3 fL (81.0-99.0); RED BLOOD CELL COUNT 4.01 mill/uL (4.2-5.4); RED CELL DISTRIBUTION WIDTH 15.6 % (11.6-14.6)
[2021-04-19 08:39] LABS: BG BASE EXCESS 3.6 mmol/L (-2.0-2.0); BG CARBOXYHEMOGLOBIN 0.9 % (0.5-1.5); BG DEOXYHEMOGLOBIN 4.4 % (0.0-5.0); BG METHEMOGLOBIN 0.3 % (0.0-1.5); BG OXYGEN SATURATION 95.5 % (92.0-98.5); BG OXYHEMOGLOBIN 94.4 % (94.0-97.0); BG PCO2 36.9 mmHg (35.0-45.0); BG PH 7.483 (7.350-7.450); BG PO2 76.2 mmHg (75.0-100.0); BG SAMPLE SITE RIGHT RADIAL; BG TOTAL HEMOGLOBIN 12.6 g/dL (12.0-18.0); BG VENT MODE VENT - P/C
[2021-04-19] MEDS: DEXAMETHASONE 4MG/ML 1ML VIAL IV SCH (09:05)
[2021-04-19] MEDS: FAMOTIDINE 20MG/2ML VIAL IV SCH (09:05)
[2021-04-19] MEDS: MIDAZOLAM HCL 100 MG in SODIUM CHLORIDE 0.9% 80 ML IV PRN ×2 (09:06→21:56)
[2021-04-19 09:24] LABS: NUCLEATED RED BLOOD CELLS 1 /100 WBC
[2021-04-19 09:25] LABS: PLATELET ESTIMATE NORMAL
[2021-04-19 09:26] LABS: MEAN PLATELET VOLUME 10.5 fl (7.4-10.4); PLATELET 386 x1000/uL (130-400)
[2021-04-19] MEDS: ENOXAPARIN 150MG/ML SYR SUBCUT SCH ×2 (11:38→21:09)
[2021-04-19] MEDS: FLUCONAZOLE 100MG TABLET PO SCH (17:41)
[2021-04-19] MEDS: METOCLOPRAMIDE HCL 10MG/2ML VIAL IV SCH (19:04)
[2021-04-20] VITALS (94 sets, daily range): BP systolic 75–165; BP diastolic 43–108
[2021-04-20] MEDS: METOCLOPRAMIDE HCL 10MG/2ML VIAL IV SCH ×4 (00:23→17:23)
[2021-04-20] MEDS: IPRATROPIUM/ALBUTEROL 0.5-3(2.5)MG/3ML NEB HHN SCH ×6 (00:38→20:36)
[2021-04-20] MEDS: FENTANYL CITRATE/PF 2,500 MCG in SODIUM CHLORIDE 0.9% 200 ML IV PRN ×3 (03:53→22:46)
[2021-04-20] MEDS: PHENYLEPHRINE 100 MG in DEXT 5% WATER 240 ML IV PRN (05:07)
[2021-04-20] MEDS: MEROPENEM 500 MG in SODIUM CHLORIDE 0.9% 50 ML IV SCH ×3 (05:10→21:31)
[2021-04-20 05:54] LABS: BASOPHILS % 0.9 % (0.0-2.0); HEMATOCRIT. 35.1 % (36.0-48.0); HEMOGLOBIN. 10.9 g/dL (12.0-16.0); LYMPHOCYTES % 7.7 % (20.0-50.0); MEAN CORPUSCULAR HEMOGLOBIN 27.8 pg (28.0-32.0); MEAN CORPUSCULAR VOLUME 89.1 fL (81.0-99.0); MEAN PLATELET VOLUME 10.5 fl (7.4-10.4); MONOCYTES % 2.3 % (2.0-8.0); NEUTROPHILS % 89.1 % (40.0-76.0); PLATELET 405 x1000/uL (130-400); RED BLOOD CELL COUNT 3.93 mill/uL (4.2-5.4); RED CELL DISTRIBUTION WIDTH 15.3 % (11.6-14.6)
[2021-04-20 06:00] LABS: CHLORIDE 108 mEq/L (98-107)
[2021-04-20] MEDS: DEXAMETHASONE 4MG/ML 1ML VIAL IV SCH (09:50)
[2021-04-20] MEDS: FAMOTIDINE 20MG/2ML VIAL IV SCH (09:50)
[2021-04-20] MEDS: ENOXAPARIN 150MG/ML SYR SUBCUT SCH ×2 (09:50→20:38)
[2021-04-20] MEDS: FLUCONAZOLE 100MG TABLET PO SCH (09:50)
[2021-04-20 10:36] LABS: BG BASE EXCESS 3.5 mmol/L (-2.0-2.0); BG CARBOXYHEMOGLOBIN 0.9 % (0.5-1.5); BG FRACTION INSPIRED OXYGEN 75; BG HCO3 ACT 28.4 mmol/L (22.0-26.0); BG METHEMOGLOBIN 0.2 % (0.0-1.5); BG OXYGEN SATURATION 86.9 % (92.0-98.5); BG OXYHEMOGLOBIN 85.9 % (94.0-97.0); BG PCO2 43.9 mmHg (35.0-45.0); BG PH 7.428 (7.350-7.450); BG PO2 55.2 mmHg (75.0-100.0); BG SAMPLE SITE RIGHT RADIAL; BG TOTAL HEMOGLOBIN 11.9 g/dL (12.0-18.0); BG VENT MODE VENT - P/C
[2021-04-20 16:23] LABS: BG BASE EXCESS -0.2 mmol/L (-2.0-2.0); BG CARBOXYHEMOGLOBIN 0.7 % (0.5-1.5); BG DEOXYHEMOGLOBIN 12.7 % (0.0-5.0); BG FRACTION INSPIRED OXYGEN 75; BG HCO3 ACT 24.6 mmol/L (22.0-26.0); BG METHEMOGLOBIN 0.4 % (0.0-1.5); BG OXYGEN SATURATION 87.2 % (92.0-98.5); BG OXYHEMOGLOBIN 86.2 % (94.0-97.0); BG PCO2 40.8 mmHg (35.0-45.0); BG PH 7.398 (7.350-7.450); BG SAMPLE SITE RIGHT RADIAL; BG VENT MODE VENT - P/C
[2021-04-20] MEDS: MIDAZOLAM HCL 100 MG in SODIUM CHLORIDE 0.9% 80 ML IV PRN (16:46)
[2021-04-21] VITALS (97 sets, daily range): BP systolic 37–190; BP diastolic 23–99
[2021-04-21] MEDS: METOCLOPRAMIDE HCL 10MG/2ML VIAL IV SCH ×5 (00:17→23:53)
[2021-04-21] MEDS: PHENYLEPHRINE 100 MG in DEXT 5% WATER 240 ML IV PRN (00:18)
[2021-04-21] MEDS: IPRATROPIUM/ALBUTEROL 0.5-3(2.5)MG/3ML NEB HHN SCH ×6 (00:55→20:31)
[2021-04-21 06:06] LABS: BASOPHILS % 0.6 % (0.0-2.0); EOSINOPHILS % 0.2 % (0.0-5.0); HEMATOCRIT. 36.9 % (36.0-48.0); HEMOGLOBIN. 11.5 g/dL (12.0-16.0); LYMPHOCYTES % 7.9 % (20.0-50.0); MEAN CORPUSCULAR HEMOGLOBIN 28.2 pg (28.0-32.0); MEAN CORPUSCULAR VOLUME 90.9 fL (81.0-99.0); MONOCYTES % 3.4 % (2.0-8.0); NEUTROPHILS % 87.9 % (40.0-76.0); PLATELET 462 x1000/uL (130-400); RED BLOOD CELL COUNT 4.06 mill/uL (4.2-5.4); RED CELL DISTRIBUTION WIDTH 15.2 % (11.6-14.6)
[2021-04-21] MEDS: MEROPENEM 500 MG in SODIUM CHLORIDE 0.9% 50 ML IV SCH ×3 (06:18→20:44)
[2021-04-21 06:21] LABS: CHLORIDE 109 mEq/L (98-107)
[2021-04-21] MEDS: FAMOTIDINE 20MG/2ML VIAL IV SCH (08:10)
[2021-04-21] MEDS: DEXAMETHASONE 4MG/ML 1ML VIAL IV SCH (08:10)
[2021-04-21] MEDS: ENOXAPARIN 150MG/ML SYR SUBCUT SCH ×2 (08:12→20:43)
[2021-04-21] MEDS: FLUCONAZOLE 100MG TABLET PO SCH (08:12)
[2021-04-21 08:18] LABS: BG BASE EXCESS 3.1 mmol/L (-2.0-2.0); BG CARBOXYHEMOGLOBIN 0.6 % (0.5-1.5); BG DEOXYHEMOGLOBIN 8.9 % (0.0-5.0); BG HCO3 ACT 27.2 mmol/L (22.0-26.0); BG METHEMOGLOBIN 0.4 % (0.0-1.5); BG OXYHEMOGLOBIN 90.1 % (94.0-97.0); BG PCO2 39.8 mmHg (35.0-45.0); BG PH 7.453 (7.350-7.450); BG PO2 59.7 mmHg (75.0-100.0); BG SAMPLE SITE RIGHT RADIAL; BG TOTAL HEMOGLOBIN 12.7 g/dL (12.0-18.0); BG VENT MODE VENT - P/C
[2021-04-21] MEDS: FENTANYL CITRATE/PF 2,500 MCG in SODIUM CHLORIDE 0.9% 200 ML IV PRN ×2 (08:36→18:37)
[2021-04-21] MEDS: MIDAZOLAM HCL 100 MG in SODIUM CHLORIDE 0.9% 80 ML IV PRN (08:37)
[2021-04-21] MEDS ORDERED: SODIUM POLYSTYRENE SULFONATE 15 G/60 ML BOT PO NR (15:45)
[2021-04-22] VITALS (84 sets, daily range): BP systolic 80–159; BP diastolic 42–96
[2021-04-22] MEDS: IPRATROPIUM/ALBUTEROL 0.5-3(2.5)MG/3ML NEB HHN SCH ×6 (00:28→20:10)
[2021-04-22] MEDS: PHENYLEPHRINE 100 MG in DEXT 5% WATER 240 ML IV PRN (02:22)
[2021-04-22] MEDS: FENTANYL CITRATE/PF 2,500 MCG in SODIUM CHLORIDE 0.9% 200 ML IV PRN ×3 (04:09→22:46)
[2021-04-22] MEDS: MIDAZOLAM HCL 100 MG in SODIUM CHLORIDE 0.9% 80 ML IV PRN ×2 (05:05→20:28)
[2021-04-22 06:11] LABS: CHLORIDE 112 mEq/L (98-107)
[2021-04-22] MEDS: METOCLOPRAMIDE HCL 10MG/2ML VIAL IV SCH ×3 (06:29→18:36)
[2021-04-22] MEDS: MEROPENEM 500 MG in SODIUM CHLORIDE 0.9% 50 ML IV SCH ×3 (06:30→21:01)
[2021-04-22] MEDS: FLUCONAZOLE 100MG TABLET PO SCH (08:55)
[2021-04-22] MEDS: ENOXAPARIN 150MG/ML SYR SUBCUT SCH ×2 (08:57→21:01)
[2021-04-22] MEDS: DEXAMETHASONE 4MG/ML 1ML VIAL IV SCH (08:57)
[2021-04-22] MEDS: FAMOTIDINE 20MG/2ML VIAL IV SCH (08:58)
[2021-04-22] MEDS ORDERED: MIDAZOLAM 100MG/100ML PMX 100 ML IV PRN (10:15)
[2021-04-22] MEDS ORDERED: INSULIN REGULAR (HUMULIN R) 300UNITS/3ML VIAL IV SCH (11:15)
[2021-04-22] MEDS ORDERED: SODIUM POLYSTYRENE SULFONATE 15 G/60 ML BOT PO SCH (11:15)
[2021-04-22] MEDS ORDERED: SODIUM BICARBONATE 8.4% 1 MEQ/ML 50ML SYR IV SCH (11:15)
[2021-04-22] MEDS ORDERED: DEXTROSE 50% WATER 50ML SYRINGE IV SCH (11:15)
[2021-04-22 11:41] LABS: BG BASE EXCESS 2.2 mmol/L (-2.0-2.0); BG CARBOXYHEMOGLOBIN 0.6 % (0.5-1.5); BG DEOXYHEMOGLOBIN 11.2 % (0.0-5.0); BG FRACTION INSPIRED OXYGEN 70; BG HCO3 ACT 27.9 mmol/L (22.0-26.0); BG METHEMOGLOBIN 0.3 % (0.0-1.5); BG OXYGEN SATURATION 88.7 % (92.0-98.5); BG OXYHEMOGLOBIN 87.9 % (94.0-97.0); BG PCO2 47.7 mmHg (35.0-45.0); BG PH 7.385 (7.350-7.450); BG PO2 59.1 mmHg (75.0-100.0); BG SAMPLE SITE RIGHT RADIAL; BG TOTAL HEMOGLOBIN 12.5 g/dL (12.0-18.0); BG VENT MODE VENT - P/C
[2021-04-22] MEDS ORDERED: CALCIUM GLUCONATE 1GM PREMIX 50 ML IV SCH (12:00)
[2021-04-22 13:41] LABS: BG BASE EXCESS 3.4 mmol/L (-2.0-2.0); BG CARBOXYHEMOGLOBIN 0.5 % (0.5-1.5); BG DEOXYHEMOGLOBIN 11.4 % (0.0-5.0); BG FRACTION INSPIRED OXYGEN 100; BG METHEMOGLOBIN 0.3 % (0.0-1.5); BG OXYGEN SATURATION 88.5 % (92.0-98.5); BG OXYHEMOGLOBIN 87.8 % (94.0-97.0); BG PCO2 54.4 mmHg (35.0-45.0); BG PH 7.359 (7.350-7.450); BG PO2 63.1 mmHg (75.0-100.0); BG SAMPLE SITE LEFT RADIAL; BG TOTAL HEMOGLOBIN 12.7 g/dL (12.0-18.0); BG VENT MODE VENT - AC
[2021-04-22] MEDS ORDERED: DEXTROSE 50% WATER 50ML SYRINGE IV PRN (16:30)
[2021-04-22] MEDS ORDERED: SODIUM BICARBONATE 8.4% 1 MEQ/ML 50ML SYR IV NR (16:30)
[2021-04-22] MEDS ORDERED: DEXTROSE 50% WATER 50ML SYRINGE IV NR (16:30)
[2021-04-22] MEDS: BLOOD SUGAR DIAGNOSTIC STRIP TEST SCH ×2 (16:42→18:36)
[2021-04-22 16:55] LABS: BASOPHILS % 0.6 % (0.0-2.0); EOSINOPHILS % 0.1 % (0.0-5.0); HEMATOCRIT. 37.7 % (36.0-48.0); LYMPHOCYTES % 7.1 % (20.0-50.0); MEAN CORPUSCULAR HEMOGLOBIN 28.6 pg (28.0-32.0); MEAN CORPUSCULAR VOLUME 89.8 fL (81.0-99.0); MEAN PLATELET VOLUME 10.2 fl (7.4-10.4); MONOCYTES % 5.1 % (2.0-8.0); NEUTROPHILS % 87.1 % (40.0-76.0); PLATELET 427 x1000/uL (130-400); RED CELL DISTRIBUTION WIDTH 15.7 % (11.6-14.6)
[2021-04-22] MEDS ORDERED: CALCIUM GLUCONATE 1GM PREMIX 50 ML IV NR (17:00)
[2021-04-22] MEDS ORDERED: SODIUM POLYSTYRENE SULFONATE 15 G/60 ML BOT PO NR (17:00)
[2021-04-22] MEDS ORDERED: INSULIN REGULAR (HUMULIN R) 300UNITS/3ML VIAL IV NR (17:00)
[2021-04-22] MEDS: INSULIN LISPRO 100 UNITS/ML SUBCUT SCH (17:17)
[2021-04-22 17:40] LABS: CREATINE KINASE MB FRACTION 11.2 ng/mL (0.5-3.6)
[2021-04-23] VITALS (94 sets, daily range): BP systolic 85–182; BP diastolic 44–102
[2021-04-23] MEDS: IPRATROPIUM/ALBUTEROL 0.5-3(2.5)MG/3ML NEB HHN SCH ×6 (00:01→21:17)
[2021-04-23] MEDS: BLOOD SUGAR DIAGNOSTIC STRIP TEST SCH ×4 (00:23→17:31)
[2021-04-23] MEDS: MIDAZOLAM HCL 100 MG in SODIUM CHLORIDE 0.9% 80 ML IV PRN ×3 (05:20→18:04)
[2021-04-23] MEDS: MEROPENEM 500 MG in SODIUM CHLORIDE 0.9% 50 ML IV SCH ×3 (05:35→22:45)
[2021-04-23] MEDS: METOCLOPRAMIDE HCL 10MG/2ML VIAL IV SCH ×4 (05:49→17:31)
[2021-04-23] MEDS: INSULIN LISPRO 100 UNITS/ML SUBCUT SCH ×4 (06:00→17:35)
[2021-04-23 06:16] LABS: BASOPHILS % 0.1 % (0.0-2.0); EOSINOPHILS % 1.1 % (0.0-5.0); HEMATOCRIT. 37.9 % (36.0-48.0); LYMPHOCYTES % 14.3 % (20.0-50.0); MEAN CORPUSCULAR HEMOGLOBIN 28.5 pg (28.0-32.0); MEAN CORPUSCULAR VOLUME 90.3 fL (81.0-99.0); MEAN PLATELET VOLUME 10.5 fl (7.4-10.4); MONOCYTES % 5.4 % (2.0-8.0); NEUTROPHILS % 79.1 % (40.0-76.0); PLATELET 373 x1000/uL (130-400); RED BLOOD CELL COUNT 4.19 mill/uL (4.2-5.4)
[2021-04-23 06:31] LABS: CHLORIDE 116 mEq/L (98-107)
[2021-04-23] MEDS: FENTANYL CITRATE/PF 2,500 MCG in SODIUM CHLORIDE 0.9% 200 ML IV PRN ×3 (07:16→21:08)
[2021-04-23] MEDS: FAMOTIDINE 20MG/2ML VIAL IV SCH (09:46)
[2021-04-23] MEDS: ENOXAPARIN 150MG/ML SYR SUBCUT SCH ×2 (09:46→21:09)
[2021-04-23] MEDS: DEXAMETHASONE 4MG/ML 1ML VIAL IV SCH (09:46)
[2021-04-23] MEDS: FLUCONAZOLE 100MG TABLET PO SCH (09:46)
[2021-04-23 09:50] LABS: BG BASE EXCESS 1.7 mmol/L (-2.0-2.0); BG CARBOXYHEMOGLOBIN 0.9 % (0.5-1.5); BG DEOXYHEMOGLOBIN 32.8 % (0.0-5.0); BG FRACTION INSPIRED OXYGEN 100; BG HCO3 ACT 27.3 mmol/L (22.0-26.0); BG METHEMOGLOBIN 0.3 % (0.0-1.5); BG OXYGEN SATURATION 66.8 % (92.0-98.5); BG PCO2 46.6 mmHg (35.0-45.0); BG PH 7.385 (7.350-7.450); BG PO2 36.7 mmHg (75.0-100.0); BG SAMPLE SITE RIGHT RADIAL; BG TOTAL HEMOGLOBIN 13.6 g/dL (12.0-18.0); BG VENT MODE VENT - AC
[2021-04-23 12:18] LABS: CREATINE KINASE MB FRACTION 19.5 ng/mL (0.5-3.6)
[2021-04-23 13:24] LABS: BG BASE EXCESS 2.9 mmol/L (-2.0-2.0); BG CARBOXYHEMOGLOBIN 0.8 % (0.5-1.5); BG DEOXYHEMOGLOBIN 8.9 % (0.0-5.0); BG FRACTION INSPIRED OXYGEN 100; BG METHEMOGLOBIN 0.3 % (0.0-1.5); BG PCO2 50.9 mmHg (35.0-45.0); BG PH 7.374 (7.350-7.450); BG PO2 64.5 mmHg (75.0-100.0); BG SAMPLE SITE RIGHT RADIAL; BG TOTAL HEMOGLOBIN 13.1 g/dL (12.0-18.0); BG TOTAL RESPIRATORY RATE 30 b/min; BG VENT MODE VENT- PRVC
[2021-04-24] VITALS (75 sets, daily range): BP systolic 97–140; BP diastolic 45–76
[2021-04-24] MEDS: BLOOD SUGAR DIAGNOSTIC STRIP TEST SCH ×4 (00:15→17:34)
[2021-04-24] MEDS: METOCLOPRAMIDE HCL 10MG/2ML VIAL IV SCH ×4 (00:15→17:33)
[2021-04-24] MEDS: MIDAZOLAM HCL 100 MG in SODIUM CHLORIDE 0.9% 80 ML IV PRN ×4 (00:45→22:11)
[2021-04-24] MEDS: IPRATROPIUM/ALBUTEROL 0.5-3(2.5)MG/3ML NEB HHN SCH ×6 (02:14→21:10)
[2021-04-24] MEDS: FENTANYL CITRATE/PF 2,500 MCG in SODIUM CHLORIDE 0.9% 200 ML IV PRN ×3 (04:00→20:43)
[2021-04-24 05:41] LABS: BASOPHILS % 0.4 % (0.0-2.0); EOSINOPHILS % 5.1 % (0.0-5.0); HEMATOCRIT. 36.1 % (36.0-48.0); HEMOGLOBIN. 11.3 g/dL (12.0-16.0); LYMPHOCYTES % 15.1 % (20.0-50.0); MEAN CORPUSCULAR HEMOGLOBIN 28.2 pg (28.0-32.0); MEAN CORPUSCULAR VOLUME 90.2 fL (81.0-99.0); MEAN PLATELET VOLUME 10.8 fl (7.4-10.4); MONOCYTES % 2.7 % (2.0-8.0); NEUTROPHILS % 76.7 % (40.0-76.0); PLATELET 305 x1000/uL (130-400); RED CELL DISTRIBUTION WIDTH 15.9 % (11.6-14.6)
[2021-04-24] MEDS: INSULIN LISPRO 100 UNITS/ML SUBCUT SCH ×4 (06:00→18:00)
[2021-04-24 07:03] LABS: CHLORIDE 117 mEq/L (98-107)
[2021-04-24 08:59] LABS: BG BASE EXCESS 4.8 mmol/L (-2.0-2.0); BG CARBOXYHEMOGLOBIN 0.3 % (0.5-1.5); BG DEOXYHEMOGLOBIN 10.6 % (0.0-5.0); BG HCO3 ACT 30.5 mmol/L (22.0-26.0); BG METHEMOGLOBIN 0.3 % (0.0-1.5); BG OXYGEN SATURATION 89.3 % (92.0-98.5); BG OXYHEMOGLOBIN 88.8 % (94.0-97.0); BG PCO2 50.1 mmHg (35.0-45.0); BG PH 7.403 (7.350-7.450); BG PO2 58.8 mmHg (75.0-100.0); BG SAMPLE SITE RIGHT RADIAL; BG TOTAL HEMOGLOBIN 12.4 g/dL (12.0-18.0); BG VENT MODE VENT - P/C
[2021-04-24] MEDS: FLUCONAZOLE 100MG TABLET PO SCH (09:35)
[2021-04-24] MEDS: FAMOTIDINE 20MG/2ML VIAL IV SCH (09:35)
[2021-04-24] MEDS: DEXAMETHASONE 4MG/ML 1ML VIAL IV SCH (09:35)
[2021-04-24] MEDS: ENOXAPARIN 150MG/ML SYR SUBCUT SCH ×2 (09:36→20:42)
[2021-04-24 18:23] LABS: BG BASE EXCESS 5.5 mmol/L (-2.0-2.0); BG CARBOXYHEMOGLOBIN 0.6 % (0.5-1.5); BG DEOXYHEMOGLOBIN 9.6 % (0.0-5.0); BG METHEMOGLOBIN 0.4 % (0.0-1.5); BG OXYGEN SATURATION 90.3 % (92.0-98.5); BG OXYHEMOGLOBIN 89.4 % (94.0-97.0); BG PCO2 48.7 mmHg (35.0-45.0); BG PH 7.421 (7.350-7.450); BG PO2 63.2 mmHg (75.0-100.0); BG SAMPLE SITE RIGHT RADIAL; BG TOTAL HEMOGLOBIN 12.3 g/dL (12.0-18.0); BG VENT MODE VENT - P/C
[2021-04-24 19:06] LABS: 25-HYDROXY VITAMIN D3 9.5 ng/mL (.)
[2021-04-25] VITALS (92 sets, daily range): BP systolic 95–141; BP diastolic 44–75
[2021-04-25] MEDS: BLOOD SUGAR DIAGNOSTIC STRIP TEST SCH ×4 (00:06→18:01)
[2021-04-25] MEDS: METOCLOPRAMIDE HCL 10MG/2ML VIAL IV SCH ×4 (00:09→18:06)
[2021-04-25] MEDS: IPRATROPIUM/ALBUTEROL 0.5-3(2.5)MG/3ML NEB HHN SCH ×6 (01:20→20:18)
[2021-04-25] MEDS: FENTANYL CITRATE/PF 2,500 MCG in SODIUM CHLORIDE 0.9% 200 ML IV PRN ×3 (04:35→20:05)
[2021-04-25] MEDS: MIDAZOLAM HCL 100 MG in SODIUM CHLORIDE 0.9% 80 ML IV PRN ×3 (05:03→21:08)
[2021-04-25 05:54] LABS: BASOPHILS % 0.7 % (0.0-2.0); EOSINOPHILS % 3.6 % (0.0-5.0); HEMOGLOBIN. 11.2 g/dL (12.0-16.0); LYMPHOCYTES % 13.5 % (20.0-50.0); MEAN CORPUSCULAR VOLUME 90.3 fL (81.0-99.0); MONOCYTES % 3.2 % (2.0-8.0); PLATELET 294 x1000/uL (130-400); RED BLOOD CELL COUNT 3.99 mill/uL (4.2-5.4); RED CELL DISTRIBUTION WIDTH 16.1 % (11.6-14.6)
[2021-04-25] MEDS: INSULIN LISPRO 100 UNITS/ML SUBCUT SCH ×4 (06:00→18:00)
[2021-04-25 06:03] LABS: CHLORIDE 115 mEq/L (98-107)
[2021-04-25] MEDS: FAMOTIDINE 20MG/2ML VIAL IV SCH (07:51)
[2021-04-25] MEDS: ENOXAPARIN 150MG/ML SYR SUBCUT SCH ×2 (07:51→21:08)
[2021-04-25] MEDS: DEXAMETHASONE 4MG/ML 1ML VIAL IV SCH (07:51)
[2021-04-25 10:03] LABS: BG BASE EXCESS 5.2 mmol/L (-2.0-2.0); BG CARBOXYHEMOGLOBIN 0.8 % (0.5-1.5); BG DEOXYHEMOGLOBIN 4.2 % (0.0-5.0); BG FRACTION INSPIRED OXYGEN 75; BG HCO3 ACT 31.3 mmol/L (22.0-26.0); BG METHEMOGLOBIN 0.3 % (0.0-1.5); BG OXYGEN SATURATION 95.8 % (92.0-98.5); BG OXYHEMOGLOBIN 94.7 % (94.0-97.0); BG PCO2 53.1 mmHg (35.0-45.0); BG PH 7.389 (7.350-7.450); BG PO2 85.9 mmHg (75.0-100.0); BG SAMPLE SITE RIGHT RADIAL; BG TOTAL HEMOGLOBIN 12.1 g/dL (12.0-18.0); BG VENT MODE VENT - P/C
[2021-04-26] VITALS (97 sets, daily range): BP systolic 72–204; BP diastolic 47–158
[2021-04-26] MEDS: IPRATROPIUM/ALBUTEROL 0.5-3(2.5)MG/3ML NEB HHN SCH ×6 (00:14→20:29)
[2021-04-26] MEDS: BLOOD SUGAR DIAGNOSTIC STRIP TEST SCH ×4 (00:46→18:14)
[2021-04-26] MEDS: METOCLOPRAMIDE HCL 10MG/2ML VIAL IV SCH ×4 (00:49→18:14)
[2021-04-26] MEDS: MIDAZOLAM HCL 100 MG in SODIUM CHLORIDE 0.9% 80 ML IV PRN ×4 (02:52→21:48)
[2021-04-26] MEDS: FENTANYL CITRATE/PF 2,500 MCG in SODIUM CHLORIDE 0.9% 200 ML IV PRN ×3 (02:53→18:57)
[2021-04-26 05:13] LABS: BASOPHILS % 0.3 % (0.0-2.0); EOSINOPHILS % 5.3 % (0.0-5.0); HEMATOCRIT. 34.7 % (36.0-48.0); HEMOGLOBIN. 10.8 g/dL (12.0-16.0); LYMPHOCYTES % 15.2 % (20.0-50.0); MEAN CORPUSCULAR HEMOGLOBIN 27.9 pg (28.0-32.0); MEAN CORPUSCULAR VOLUME 89.5 fL (81.0-99.0); MEAN PLATELET VOLUME 11.1 fl (7.4-10.4); MONOCYTES % 4.9 % (2.0-8.0); NEUTROPHILS % 74.3 % (40.0-76.0); PLATELET 278 x1000/uL (130-400); RED BLOOD CELL COUNT 3.87 mill/uL (4.2-5.4); RED CELL DISTRIBUTION WIDTH 15.7 % (11.6-14.6)
[2021-04-26 05:15] LABS: CHLORIDE 114 mEq/L (98-107)
[2021-04-26] MEDS: INSULIN LISPRO 100 UNITS/ML SUBCUT SCH ×4 (06:00→18:47)
[2021-04-26] MEDS: ENOXAPARIN 150MG/ML SYR SUBCUT SCH ×2 (08:59→21:04)
[2021-04-26] MEDS: DEXAMETHASONE 4MG/ML 1ML VIAL IV SCH (08:59)
[2021-04-26] MEDS: FAMOTIDINE 20MG/2ML VIAL IV SCH (09:00)
[2021-04-26 10:47] LABS: BG BASE EXCESS 6.2 mmol/L (-2.0-2.0); BG CARBOXYHEMOGLOBIN 0.8 % (0.5-1.5); BG DEOXYHEMOGLOBIN 12.3 % (0.0-5.0); BG FRACTION INSPIRED OXYGEN 75; BG HCO3 ACT 30.7 mmol/L (22.0-26.0); BG METHEMOGLOBIN 0.3 % (0.0-1.5); BG OXYGEN SATURATION 87.6 % (92.0-98.5); BG OXYHEMOGLOBIN 86.6 % (94.0-97.0); BG PCO2 43.7 mmHg (35.0-45.0); BG PH 7.464 (7.350-7.450); BG PO2 54.9 mmHg (75.0-100.0); BG SAMPLE SITE RIGHT RADIAL; BG TOTAL HEMOGLOBIN 12.3 g/dL (12.0-18.0); BG VENT MODE VENT - P/C
[2021-04-26] MEDS ORDERED: SODIUM CHLORIDE 0.45% 1,000 ML IV SCH (11:30)
[2021-04-26 11:54] LABS: BG BASE EXCESS 5.6 mmol/L (-2.0-2.0); BG CARBOXYHEMOGLOBIN 0.7 % (0.5-1.5); BG DEOXYHEMOGLOBIN 8.7 % (0.0-5.0); BG FRACTION INSPIRED OXYGEN 85; BG HCO3 ACT 31.4 mmol/L (22.0-26.0); BG METHEMOGLOBIN 0.3 % (0.0-1.5); BG OXYGEN SATURATION 91.2 % (92.0-98.5); BG OXYHEMOGLOBIN 90.3 % (94.0-97.0); BG PCO2 51.3 mmHg (35.0-45.0); BG PH 7.405 (7.350-7.450); BG PO2 66.2 mmHg (75.0-100.0); BG SAMPLE SITE LEFT RADIAL; BG TOTAL HEMOGLOBIN 12.5 g/dL (12.0-18.0); BG VENT MODE VENT - P/C
[2021-04-26] MEDS: DEXTROSE 5% WATER 1,000 ML IV SCH (16:36)
[2021-04-27] VITALS (115 sets, daily range): BP systolic 65–189; BP diastolic 32–112
[2021-04-27] MEDS: IPRATROPIUM/ALBUTEROL 0.5-3(2.5)MG/3ML NEB HHN SCH ×6 (00:17→20:42)
[2021-04-27] MEDS: METOCLOPRAMIDE HCL 10MG/2ML VIAL IV SCH ×4 (00:42→17:45)
[2021-04-27] MEDS: BLOOD SUGAR DIAGNOSTIC STRIP TEST SCH ×4 (00:42→18:00)
[2021-04-27] MEDS: FENTANYL CITRATE/PF 2,500 MCG in SODIUM CHLORIDE 0.9% 200 ML IV PRN ×3 (02:56→19:45)
[2021-04-27] MEDS: MIDAZOLAM HCL 100 MG in SODIUM CHLORIDE 0.9% 80 ML IV PRN ×3 (05:36→16:11)
[2021-04-27] MEDS: INSULIN LISPRO 100 UNITS/ML SUBCUT SCH ×4 (06:00→18:00)
[2021-04-27 06:01] LABS: BASOPHILS % 0.4 % (0.0-2.0); EOSINOPHILS % 4.4 % (0.0-5.0); HEMATOCRIT. 34.5 % (36.0-48.0); HEMOGLOBIN. 10.9 g/dL (12.0-16.0); LYMPHOCYTES % 19.6 % (20.0-50.0); MEAN CORPUSCULAR HEMOGLOBIN 28.2 pg (28.0-32.0); MEAN CORPUSCULAR VOLUME 89.5 fL (81.0-99.0); MEAN PLATELET VOLUME 11.5 fl (7.4-10.4); MONOCYTES % 5.2 % (2.0-8.0); NEUTROPHILS % 70.4 % (40.0-76.0); PLATELET 247 x1000/uL (130-400); RED BLOOD CELL COUNT 3.86 mill/uL (4.2-5.4); RED CELL DISTRIBUTION WIDTH 15.8 % (11.6-14.6)
[2021-04-27 06:03] LABS: CHLORIDE 114 mEq/L (98-107)
[2021-04-27 08:39] LABS: BG BASE EXCESS 2.8 mmol/L (-2.0-2.0); BG CARBOXYHEMOGLOBIN 1.4 % (0.5-1.5); BG FRACTION INSPIRED OXYGEN 85; BG HCO3 ACT 27.9 mmol/L (22.0-26.0); BG METHEMOGLOBIN 0.2 % (0.0-1.5); BG OXYGEN SATURATION 84.8 % (92.0-98.5); BG OXYHEMOGLOBIN 83.4 % (94.0-97.0); BG PCO2 45.1 mmHg (35.0-45.0); BG SAMPLE SITE RIGHT RADIAL; BG TOTAL HEMOGLOBIN 11.9 g/dL (12.0-18.0); BG TOTAL RESPIRATORY RATE 30 b/min; BG VENT MODE VENT - P/C
[2021-04-27] MEDS: ENOXAPARIN 150MG/ML SYR SUBCUT SCH ×2 (08:49→22:00)
[2021-04-27] MEDS: FAMOTIDINE 20MG/2ML VIAL IV SCH (08:50)
[2021-04-27] MEDS: DEXAMETHASONE 4MG/ML 1ML VIAL IV SCH (08:50)
[2021-04-27] MEDS: LORAZEPAM 2MG/ML CPJ IV PRN ×3 (10:51→17:45)
[2021-04-27 14:21] LABS: BG CARBOXYHEMOGLOBIN 1.4 % (0.5-1.5); BG DEOXYHEMOGLOBIN 10.2 % (0.0-5.0); BG FRACTION INSPIRED OXYGEN 100; BG HCO3 ACT 27.8 mmol/L (22.0-26.0); BG METHEMOGLOBIN 0.1 % (0.0-1.5); BG OXYGEN SATURATION 89.6 % (92.0-98.5); BG OXYHEMOGLOBIN 88.3 % (94.0-97.0); BG PCO2 43.6 mmHg (35.0-45.0); BG PH 7.423 (7.350-7.450); BG PO2 61.1 mmHg (75.0-100.0); BG SAMPLE SITE RIGHT RADIAL; BG TOTAL HEMOGLOBIN 11.8 g/dL (12.0-18.0); BG VENT MODE VENT - P/C
[2021-04-27] MEDS ORDERED: LIDOCAINE HCL/EPINEPHRINE 1%-EPI 1:100,000 20 ML VIAL INFIL NR (19:00)
[2021-04-27] MEDS: PHENYLEPHRINE 100 MG in DEXT 5% WATER 240 ML IV PRN (19:46)
[2021-04-27] MEDS: DEXTROSE 5% WATER 1,000 ML IV SCH (19:47)
[2021-04-27] MEDS: NOREPINEPHRINE 32 MG in DEXT 5% WATER 218 ML IV PRN (19:47)
[2021-04-28] VITALS (102 sets, daily range): BP systolic 58–217; BP diastolic 24–167
[2021-04-28] MEDS: BLOOD SUGAR DIAGNOSTIC STRIP TEST SCH ×5 (00:34→23:14)
[2021-04-28] MEDS: METOCLOPRAMIDE HCL 10MG/2ML VIAL IV SCH ×5 (00:45→23:14)
[2021-04-28] MEDS: MIDAZOLAM HCL 100 MG in SODIUM CHLORIDE 0.9% 80 ML IV PRN ×3 (00:51→20:17)
[2021-04-28] MEDS: IPRATROPIUM/ALBUTEROL 0.5-3(2.5)MG/3ML NEB HHN SCH ×6 (02:06→20:59)
[2021-04-28] MEDS: FENTANYL CITRATE/PF 2,500 MCG in SODIUM CHLORIDE 0.9% 200 ML IV PRN ×3 (05:32→21:33)
[2021-04-28] MEDS: INSULIN LISPRO 100 UNITS/ML SUBCUT SCH ×5 (06:00→23:14)
[2021-04-28 06:13] LABS: BASOPHILS % 0.8 % (0.0-2.0); EOSINOPHILS % 8.7 % (0.0-5.0); HEMATOCRIT. 38.6 % (36.0-48.0); LYMPHOCYTES % 16.1 % (20.0-50.0); MEAN CORPUSCULAR HEMOGLOBIN 28.7 pg (28.0-32.0); MEAN PLATELET VOLUME 11.6 fl (7.4-10.4); MONOCYTES % 3.5 % (2.0-8.0); NEUTROPHILS % 70.9 % (40.0-76.0); PLATELET 147 x1000/uL (130-400); RED CELL DISTRIBUTION WIDTH 16.6 % (11.6-14.6)
[2021-04-28 08:34] LABS: BG BASE EXCESS 0.7 mmol/L (-2.0-2.0); BG CARBOXYHEMOGLOBIN 1.4 % (0.5-1.5); BG DEOXYHEMOGLOBIN 17.4 % (0.0-5.0); BG HCO3 ACT 26.2 mmol/L (22.0-26.0); BG METHEMOGLOBIN 0.3 % (0.0-1.5); BG OXYGEN SATURATION 82.3 % (92.0-98.5); BG OXYHEMOGLOBIN 80.9 % (94.0-97.0); BG PCO2 45.8 mmHg (35.0-45.0); BG PH 7.376 (7.350-7.450); BG PO2 50.3 mmHg (75.0-100.0); BG SAMPLE SITE RIGHT RADIAL; BG TOTAL HEMOGLOBIN 12.7 g/dL (12.0-18.0); BG VENT MODE VENT - P/C
[2021-04-28] MEDS: FAMOTIDINE 20MG/2ML VIAL IV SCH (08:47)
[2021-04-28] MEDS: DEXAMETHASONE 4MG/ML 1ML VIAL IV SCH (08:47)
[2021-04-28] MEDS: ENOXAPARIN 150MG/ML SYR SUBCUT SCH ×2 (08:48→21:00)
[2021-04-28 09:21] LABS: CHLORIDE 114 mEq/L (98-107)
[2021-04-28 09:26] LABS: PHOSPHORUS 4.3 mg/dL (2.5-4.9)
[2021-04-28] MEDS: PROPOFOL 10MG/ML 100ML 100 ML IV PRN ×3 (10:00→22:51)
[2021-04-28] MEDS: PHENYLEPHRINE 100 MG in DEXT 5% WATER 240 ML IV PRN (10:15)
[2021-04-28] MEDS: ACETAMINOPHEN 325MG TABLET PO PRN (12:13)
[2021-04-28] MEDS: DEXTROSE 5% WATER 1,000 ML IV SCH ×2 (14:30→23:55)
[2021-04-28 16:20] LABS: CLARITY URINE TURBID (CLEAR); COLOR URINE ORANGE (YELLOW); KETONES URINE NEGATIVE (NEGATIVE); LEUKOCYTE ESTERASE URINE 1+ (NEGATIVE); NITRITE URINE NEGATIVE (NEGATIVE); OCCULT BLOOD URINE 3+ (NEGATIVE); PH URINE 5.5 (4.5-8.0); PROTEIN URINE 2+ (NEGATIVE); SPECIFIC GRAVITY URINE 1.017 (1.005-1.030)
[2021-04-28 17:36] LABS: BG BASE EXCESS 1.4 mmol/L (-2.0-2.0); BG CARBOXYHEMOGLOBIN 1.6 % (0.5-1.5); BG DEOXYHEMOGLOBIN 28.7 % (0.0-5.0); BG METHEMOGLOBIN 0.1 % (0.0-1.5); BG OXYGEN SATURATION 70.8 % (92.0-98.5); BG OXYHEMOGLOBIN 69.6 % (94.0-97.0); BG PCO2 46.8 mmHg (35.0-45.0); BG PH 7.379 (7.350-7.450); BG PO2 40.3 mmHg (75.0-100.0); BG SAMPLE SITE RIGHT RADIAL; BG TOTAL HEMOGLOBIN 12.7 g/dL (12.0-18.0); BG VENT MODE VENT - P/C
[2021-04-29] VITALS (107 sets, daily range): BP systolic 62–140; BP diastolic 40–88
[2021-04-29] MEDS: IPRATROPIUM/ALBUTEROL 0.5-3(2.5)MG/3ML NEB HHN SCH ×6 (00:54→20:10)
[2021-04-29] MEDS: PROPOFOL 10MG/ML 100ML 100 ML IV PRN ×6 (04:14→23:25)
[2021-04-29] MEDS: MIDAZOLAM HCL 100 MG in SODIUM CHLORIDE 0.9% 80 ML IV PRN ×2 (05:48→16:38)
[2021-04-29] MEDS: FENTANYL CITRATE/PF 2,500 MCG in SODIUM CHLORIDE 0.9% 200 ML IV PRN ×3 (05:48→22:20)
[2021-04-29] MEDS: PHENYLEPHRINE 100 MG in DEXT 5% WATER 240 ML IV PRN ×3 (05:49→22:31)
[2021-04-29] MEDS: METOCLOPRAMIDE HCL 10MG/2ML VIAL IV SCH ×4 (05:54→23:26)
[2021-04-29 05:56] LABS: BASOPHILS % 0.2 % (0.0-2.0); EOSINOPHILS % 5.5 % (0.0-5.0); HEMATOCRIT. 35.4 % (36.0-48.0); HEMOGLOBIN. 11.1 g/dL (12.0-16.0); LYMPHOCYTES % 12.5 % (20.0-50.0); MEAN CORPUSCULAR HEMOGLOBIN 28.1 pg (28.0-32.0); MEAN PLATELET VOLUME 10.8 fl (7.4-10.4); MONOCYTES % 4.2 % (2.0-8.0); NEUTROPHILS % 77.6 % (40.0-76.0); PLATELET 260 x1000/uL (130-400); RED BLOOD CELL COUNT 3.93 mill/uL (4.2-5.4); RED CELL DISTRIBUTION WIDTH 16.1 % (11.6-14.6)
[2021-04-29] MEDS: INSULIN LISPRO 100 UNITS/ML SUBCUT SCH ×3 (06:00→17:52)
[2021-04-29] MEDS: BLOOD SUGAR DIAGNOSTIC STRIP TEST SCH ×3 (06:00→17:47)
[2021-04-29 06:04] LABS: CHLORIDE 112 mEq/L (98-107)
[2021-04-29] MEDS: ENOXAPARIN 150MG/ML SYR SUBCUT SCH ×3 (08:04→20:26)
[2021-04-29] MEDS: DEXAMETHASONE 4MG/ML 1ML VIAL IV SCH (08:04)
[2021-04-29] MEDS: FAMOTIDINE 20MG/2ML VIAL IV SCH (08:04)
[2021-04-29 08:52] LABS: BG BASE EXCESS 2.1 mmol/L (-2.0-2.0); BG CARBOXYHEMOGLOBIN 1.6 % (0.5-1.5); BG DEOXYHEMOGLOBIN 25.4 % (0.0-5.0); BG FRACTION INSPIRED OXYGEN 100; BG HCO3 ACT 27.7 mmol/L (22.0-26.0); BG METHEMOGLOBIN 0.1 % (0.0-1.5); BG OXYGEN SATURATION 74.2 % (92.0-98.5); BG OXYHEMOGLOBIN 72.9 % (94.0-97.0); BG PCO2 47.3 mmHg (35.0-45.0); BG PH 7.385 (7.350-7.450); BG PO2 41.5 mmHg (75.0-100.0); BG SAMPLE SITE RIGHT RADIAL; BG TOTAL HEMOGLOBIN 12.3 g/dL (12.0-18.0); BG VENT MODE VENT - P/C
[2021-04-29] MEDS ORDERED: FUROSEMIDE 20MG/2ML VIAL IVP NR (10:30)
[2021-04-29 13:06] LABS: BG BASE EXCESS 1.6 mmol/L (-2.0-2.0); BG DEOXYHEMOGLOBIN 30.7 % (0.0-5.0); BG FRACTION INSPIRED OXYGEN 100; BG HCO3 ACT 27.1 mmol/L (22.0-26.0); BG METHEMOGLOBIN 0.1 % (0.0-1.5); BG OXYGEN SATURATION 68.6 % (92.0-98.5); BG OXYHEMOGLOBIN 67.2 % (94.0-97.0); BG PCO2 46.4 mmHg (35.0-45.0); BG PH 7.385 (7.350-7.450); BG PO2 36.8 mmHg (75.0-100.0); BG SAMPLE SITE LEFT RADIAL; BG TOTAL HEMOGLOBIN 12.7 g/dL (12.0-18.0); BG TOTAL RESPIRATORY RATE 33 b/min; BG VENT MODE VENT - P/C
[2021-04-29 17:38] LABS: BG BASE EXCESS -4.7 mmol/L (-2.0-2.0); BG CARBOXYHEMOGLOBIN 1.5 % (0.5-1.5); BG DEOXYHEMOGLOBIN 23.9 % (0.0-5.0); BG FRACTION INSPIRED OXYGEN 100; BG HCO3 ACT 20.9 mmol/L (22.0-26.0); BG METHEMOGLOBIN 0.1 % (0.0-1.5); BG OXYGEN SATURATION 75.7 % (92.0-98.5); BG OXYHEMOGLOBIN 74.5 % (94.0-97.0); BG PCO2 40.5 mmHg (35.0-45.0); BG PO2 45.8 mmHg (75.0-100.0); BG SAMPLE SITE RIGHT RADIAL; BG TOTAL HEMOGLOBIN 12.4 g/dL (12.0-18.0); BG VENT MODE VENT - P/C
[2021-04-29] MEDS: ACETAMINOPHEN 325MG TABLET PO PRN (20:26)
[2021-04-29] MEDS: NOREPINEPHRINE 32 MG in DEXT 5% WATER 218 ML IV PRN (21:08)
[2021-04-30] VITALS (93 sets, daily range): BP systolic 60–136; BP diastolic 28–115
[2021-04-30] MEDS: IPRATROPIUM/ALBUTEROL 0.5-3(2.5)MG/3ML NEB HHN SCH ×6 (00:33→21:01)
[2021-04-30] MEDS: MIDAZOLAM HCL 100 MG in SODIUM CHLORIDE 0.9% 80 ML IV PRN ×2 (03:29→12:27)
[2021-04-30] MEDS: PHENYLEPHRINE 100 MG in DEXT 5% WATER 240 ML IV PRN ×5 (03:58→22:51)
[2021-04-30] MEDS: BLOOD SUGAR DIAGNOSTIC STRIP TEST SCH ×5 (05:23→23:18)
[2021-04-30] MEDS: INSULIN LISPRO 100 UNITS/ML SUBCUT SCH ×5 (05:23→23:32)
[2021-04-30] MEDS: METOCLOPRAMIDE HCL 10MG/2ML VIAL IV SCH ×4 (05:24→23:30)
[2021-04-30] MEDS: ACETAMINOPHEN 325MG TABLET PO PRN (05:43)
[2021-04-30] MEDS: PROPOFOL 10MG/ML 100ML 100 ML IV PRN ×7 (05:44→22:16)
[2021-04-30] MEDS: FENTANYL CITRATE/PF 2,500 MCG in SODIUM CHLORIDE 0.9% 200 ML IV PRN ×3 (06:13→22:56)
[2021-04-30 06:18] LABS: BASOPHILS % 0.5 % (0.0-2.0); EOSINOPHILS % 0.4 % (0.0-5.0); HEMATOCRIT. 39.8 % (36.0-48.0); HEMOGLOBIN. 12.4 g/dL (12.0-16.0); MEAN CORPUSCULAR HEMOGLOBIN 28.2 pg (28.0-32.0); MEAN CORPUSCULAR VOLUME 90.6 fL (81.0-99.0); MEAN PLATELET VOLUME 11.7 fl (7.4-10.4); MONOCYTES % 7.3 % (2.0-8.0); NEUTROPHILS % 79.8 % (40.0-76.0); PLATELET 249 x1000/uL (130-400); RED BLOOD CELL COUNT 4.39 mill/uL (4.2-5.4); RED CELL DISTRIBUTION WIDTH 16.3 % (11.6-14.6)
[2021-04-30 07:48] LABS: BG BASE EXCESS -8.8 mmol/L (-2.0-2.0); BG DEOXYHEMOGLOBIN 13.1 % (0.0-5.0); BG HCO3 ACT 18.7 mmol/L (22.0-26.0); BG METHEMOGLOBIN 0.2 % (0.0-1.5); BG OXYGEN SATURATION 86.6 % (92.0-98.5); BG OXYHEMOGLOBIN 84.7 % (94.0-97.0); BG PCO2 46.1 mmHg (35.0-45.0); BG PH 7.226 (7.350-7.450); BG PO2 61.6 mmHg (75.0-100.0); BG SAMPLE SITE RIGHT RADIAL; BG TOTAL HEMOGLOBIN 13.8 g/dL (12.0-18.0); BG VENT MODE VENT - P/C
[2021-04-30] MEDS ORDERED: SODIUM POLYSTYRENE SULFONATE 15 G/60 ML BOT PO SCH ×2 (08:15→18:45)
[2021-04-30] MEDS ORDERED: SODIUM BICARBONATE 8.4% 1 MEQ/ML 50ML SYR IV SCH ×2 (08:15→18:45)
[2021-04-30] MEDS: FAMOTIDINE 20MG/2ML VIAL IV SCH (08:23)
[2021-04-30] MEDS: ENOXAPARIN 150MG/ML SYR SUBCUT SCH ×2 (08:23→21:13)
[2021-04-30] MEDS: DEXAMETHASONE 4MG/ML 1ML VIAL IV SCH (08:23)
[2021-04-30] MEDS ORDERED: DEXT 5%/0.9% NACL 1,000 ML IV SCH (09:30)
[2021-04-30] MEDS ORDERED: SODIUM BICARBONATE 8.4% 1 MEQ/ML 50ML SYR IV NR ×4 (10:00→22:30)
[2021-04-30 13:34] LABS: BG BASE EXCESS -14.2 mmol/L (-2.0-2.0); BG CARBOXYHEMOGLOBIN 1.7 % (0.5-1.5); BG DEOXYHEMOGLOBIN 15.4 % (0.0-5.0); BG FRACTION INSPIRED OXYGEN 100; BG HCO3 ACT 14.6 mmol/L (22.0-26.0); BG METHEMOGLOBIN 0.3 % (0.0-1.5); BG OXYGEN SATURATION 84.3 % (92.0-98.5); BG OXYHEMOGLOBIN 82.6 % (94.0-97.0); BG PCO2 45.2 mmHg (35.0-45.0); BG PH 7.128 (7.350-7.450); BG PO2 64.1 mmHg (75.0-100.0); BG SAMPLE SITE LEFT RADIAL; BG TOTAL HEMOGLOBIN 13.7 g/dL (12.0-18.0); BG VENT MODE VENT - P/C
[2021-04-30] MEDS: SODIUM BICARBONATE 100 MEQ in DEXT 5%/0.9% NACL 1,000 ML IV SCH (15:03)
[2021-04-30 16:42] LABS: BG BASE EXCESS -13.3 mmol/L (-2.0-2.0); BG CARBOXYHEMOGLOBIN 1.4 % (0.5-1.5); BG DEOXYHEMOGLOBIN 15.5 % (0.0-5.0); BG HCO3 ACT 16.3 mmol/L (22.0-26.0); BG METHEMOGLOBIN 0.4 % (0.0-1.5); BG OXYGEN SATURATION 84.2 % (92.0-98.5); BG OXYHEMOGLOBIN 82.7 % (94.0-97.0); BG PCO2 52.7 mmHg (35.0-45.0); BG PH 7.108 (7.350-7.450); BG PO2 64.7 mmHg (75.0-100.0); BG SAMPLE SITE RIGHT RADIAL; BG TOTAL HEMOGLOBIN 13.2 g/dL (12.0-18.0); BG VENT MODE VENT - P/C
[2021-04-30] MEDS ORDERED: DEXTROSE 50% WATER 50ML SYRINGE IV SCH (18:45)
[2021-04-30] MEDS ORDERED: INSULIN REGULAR (HUMULIN R) 300UNITS/3ML VIAL IV SCH (19:00)
[2021-04-30] MEDS: NOREPINEPHRINE 32 MG in DEXT 5% WATER 218 ML IV PRN (19:58)
[2021-04-30] MEDS ORDERED: CALCIUM CHLORIDE 1,000 MG in DEXT 5% WATER 90 ML IV SCH (21:00)
[2021-04-30] MEDS: MEROPENEM 1,000 MG in SODIUM CHLORIDE 0.9% 100 ML IV SCH (21:13)
[2021-04-30] MEDS ORDERED: DEXTROSE 50% WATER 50ML SYRINGE IV NR (22:30)
[2021-04-30] MEDS ORDERED: INSULIN REGULAR (HUMULIN R) 300UNITS/3ML VIAL IV NR (22:30)
[2021-05-01] VITALS (115 sets, daily range): BP systolic 50–151; BP diastolic 24–89
[2021-05-01] MEDS: MIDAZOLAM HCL 100 MG in SODIUM CHLORIDE 0.9% 80 ML IV PRN (00:01)
[2021-05-01] MEDS: IPRATROPIUM/ALBUTEROL 0.5-3(2.5)MG/3ML NEB HHN SCH ×5 (00:45→21:18)
[2021-05-01] MEDS: PROPOFOL 10MG/ML 100ML 100 ML IV PRN ×4 (01:05→08:41)
[2021-05-01] MEDS: SODIUM BICARBONATE 100 MEQ in DEXT 5%/0.9% NACL 1,000 ML IV SCH (01:33)
[2021-05-01] MEDS: NOREPINEPHRINE 32 MG in DEXT 5% WATER 218 ML IV PRN ×5 (01:54→21:27)
[2021-05-01] MEDS: PHENYLEPHRINE 100 MG in DEXT 5% WATER 240 ML IV PRN ×4 (03:46→21:42)
[2021-05-01 05:04] LABS: HEMATOCRIT. 38.2 % (36.0-48.0); HEMOGLOBIN. 11.7 g/dL (12.0-16.0); MEAN CORPUSCULAR HEMOGLOBIN 28.8 pg (28.0-32.0); MEAN CORPUSCULAR VOLUME 94.4 fL (81.0-99.0); MEAN PLATELET VOLUME 11.8 fl (7.4-10.4); PLATELET 191 x1000/uL (130-400); RED BLOOD CELL COUNT 4.04 mill/uL (4.2-5.4); RED CELL DISTRIBUTION WIDTH 16.5 % (11.6-14.6)
[2021-05-01] MEDS: BLOOD SUGAR DIAGNOSTIC STRIP TEST SCH ×4 (05:33→23:39)
[2021-05-01] MEDS: METOCLOPRAMIDE HCL 10MG/2ML VIAL IV SCH ×4 (05:34→23:08)
[2021-05-01] MEDS: MEROPENEM 1,000 MG in SODIUM CHLORIDE 0.9% 100 ML IV SCH ×3 (05:34→21:41)
[2021-05-01] MEDS: INSULIN LISPRO 100 UNITS/ML SUBCUT SCH ×4 (05:35→23:39)
[2021-05-01] MEDS: FENTANYL CITRATE/PF 2,500 MCG in SODIUM CHLORIDE 0.9% 200 ML IV PRN (06:55)
[2021-05-01 08:35] LABS: BG BASE EXCESS -16.6 mmol/L (-2.0-2.0); BG CARBOXYHEMOGLOBIN 1.4 % (0.5-1.5); BG DEOXYHEMOGLOBIN 12.9 % (0.0-5.0); BG FRACTION INSPIRED OXYGEN 100; BG HCO3 ACT 13.4 mmol/L (22.0-26.0); BG METHEMOGLOBIN 0.1 % (0.0-1.5); BG OXYGEN SATURATION 86.9 % (92.0-98.5); BG OXYHEMOGLOBIN 85.6 % (94.0-97.0); BG PCO2 48.5 mmHg (35.0-45.0); BG PH 7.059 (7.350-7.450); BG PO2 70.1 mmHg (75.0-100.0); BG SAMPLE SITE RIGHT RADIAL; BG TOTAL HEMOGLOBIN 12.1 g/dL (12.0-18.0); BG VENT MODE VENT - P/C
[2021-05-01] MEDS: FAMOTIDINE 20MG/2ML VIAL IV SCH (08:41)
[2021-05-01] MEDS: DEXAMETHASONE 4MG/ML 1ML VIAL IV SCH (08:41)
[2021-05-01] MEDS: ENOXAPARIN 150MG/ML SYR SUBCUT SCH ×2 (08:42→20:30)
[2021-05-01] MEDS: VASOPRESSIN 20 UNIT in SODIUM CHLORIDE 0.9% 99 ML IV PRN ×3 (08:53→21:41)
[2021-05-01 09:36] LABS: NUCLEATED RED BLOOD CELLS 39 /100 WBC
[2021-05-01 09:37] LABS: PLATELET ESTIMATE NORMAL
[2021-05-01] MEDS ORDERED: SODIUM BICARBONATE 8.4% 1 MEQ/ML 50ML SYR IV SCH (09:45)
[2021-05-01] MEDS ORDERED: LIDOCAINE HCL 1% 10 MG/ML 10ML VIAL ONE (10:07)
[2021-05-01] MEDS: SODIUM BICARBONATE 150 MEQ in DEXT 5%/0.9% NACL 1,000 ML IV SCH ×2 (10:57→23:05)
[2021-05-01] MEDS: DOPAMINE 400MG/250ML PREMIX 250 ML IV PRN ×4 (12:20→20:04)
[2021-05-01 15:35] LABS: CHLORIDE 98 mEq/L (98-107)
[2021-05-01 16:05] LABS: PHOSPHORUS 11.1 mg/dL (2.5-4.9)
[2021-05-01] MEDS ORDERED: SODIUM BICARBONATE 8.4% 1 MEQ/ML 50ML SYR IV NR (17:15)
[2021-05-01] MEDS ORDERED: SODIUM POLYSTYRENE SULFONATE 15 G/60 ML BOT NG NR (17:15)
[2021-05-01] MEDS ORDERED: CALCIUM GLUCONATE 1GM PREMIX 50 ML IV ONE (17:30)
[2021-05-01 18:05] LABS: BG BASE EXCESS -11.2 mmol/L (-2.0-2.0); BG CARBOXYHEMOGLOBIN 1.2 % (0.5-1.5); BG FRACTION INSPIRED OXYGEN 100; BG HCO3 ACT 16.5 mmol/L (22.0-26.0); BG OXYGEN SATURATION 71.7 % (92.0-98.5); BG OXYHEMOGLOBIN 70.8 % (94.0-97.0); BG PCO2 44.5 mmHg (35.0-45.0); BG PH 7.188 (7.350-7.450); BG PO2 43.5 mmHg (75.0-100.0); BG TOTAL HEMOGLOBIN 10.6 g/dL (12.0-18.0); BG VENT MODE VENT - P/C
[2021-05-01] MEDS: SODIUM BICARBONATE 8.4% 1 MEQ/ML 50ML SYR IV SCH ×2 (19:18→23:08)
[2021-05-01 19:48] LABS: HEPATITIS B SURFACE ANTIGEN NEGATIVE
[2021-05-01] MEDS: EPINEPHRINE 10 MG in SODIUM CHLORIDE 0.9% 240 ML IV PRN ×2 (21:20→22:21)
[2021-05-01] MEDS: DOPAMINE 800MG PREMIX (DOUBLE) 250 ML IV PRN (21:34)
[2021-05-01] MEDS ORDERED: ALBUMIN HUMAN 25GM/100ML (25%) IV NR (23:00)
[2021-05-01] MEDS ORDERED: EPINEPHRINE 20 MG in SODIUM CHLORIDE 0.9% 230 ML IV PRN (23:15)
[2021-05-01] MEDS: EPINEPHRINE 20 MG in SODIUM CHLORIDE 0.9% 480 ML IV PRN (23:38)
[2021-05-02] VITALS (28 sets, daily range): BP systolic 40–98; BP diastolic 21–64
[2021-05-02] MEDS: IPRATROPIUM/ALBUTEROL 0.5-3(2.5)MG/3ML NEB HHN SCH ×3 (00:31→08:46)
[2021-05-02] MEDS: NOREPINEPHRINE 32 MG in DEXT 5% WATER 218 ML IV PRN ×3 (01:28→09:56)
[2021-05-02] MEDS: DOPAMINE 800MG PREMIX (DOUBLE) 250 ML IV PRN ×3 (01:29→11:28)
[2021-05-02] MEDS: EPINEPHRINE 20 MG in SODIUM CHLORIDE 0.9% 480 ML IV PRN ×6 (01:30→12:20)
[2021-05-02] MEDS: PHENYLEPHRINE 100 MG in DEXT 5% WATER 240 ML IV PRN ×3 (01:31→10:57)
[2021-05-02] MEDS: SODIUM BICARBONATE 8.4% 1 MEQ/ML 50ML SYR IV SCH (05:07)
[2021-05-02] MEDS: MEROPENEM 1,000 MG in SODIUM CHLORIDE 0.9% 100 ML IV SCH (05:11)
[2021-05-02] MEDS: METOCLOPRAMIDE HCL 10MG/2ML VIAL IV SCH (05:11)
[2021-05-02] MEDS ORDERED: SODIUM BICARBONATE 8.4% 1 MEQ/ML 50ML SYR IV NR ×2 (05:15→06:00)
[2021-05-02] MEDS: VASOPRESSIN 20 UNIT in SODIUM CHLORIDE 0.9% 99 ML IV PRN ×2 (05:25→08:00)
[2021-05-02 05:42] LABS: BG BASE EXCESS -12.7 mmol/L (-2.0-2.0); BG CARBOXYHEMOGLOBIN 1.7 % (0.5-1.5); BG DEOXYHEMOGLOBIN 33.7 % (0.0-5.0); BG FRACTION INSPIRED OXYGEN 100; BG HCO3 ACT 14.9 mmol/L (22.0-26.0); BG METHEMOGLOBIN 0.2 % (0.0-1.5); BG OXYGEN SATURATION 65.6 % (92.0-98.5); BG OXYHEMOGLOBIN 64.4 % (94.0-97.0); BG PCO2 41.2 mmHg (35.0-45.0); BG PH 7.177 (7.350-7.450); BG PO2 41.9 mmHg (75.0-100.0); BG SAMPLE SITE LEFT RADIAL; BG TOTAL HEMOGLOBIN 9.4 g/dL (12.0-18.0); BG VENT MODE VENT - P/C
[2021-05-02] MEDS: INSULIN LISPRO 100 UNITS/ML SUBCUT SCH (05:42)
[2021-05-02] MEDS: BLOOD SUGAR DIAGNOSTIC STRIP TEST SCH (05:42)
[2021-05-02] MEDS: SODIUM BICARBONATE 150 MEQ in DEXT 5%/0.9% NACL 1,000 ML IV SCH (08:00)
[2021-05-02] MEDS: DEXAMETHASONE 4MG/ML 1ML VIAL IV SCH (08:02)
[2021-05-02] MEDS: FAMOTIDINE 20MG/2ML VIAL IV SCH (08:02)
[2021-05-02] MEDS: ENOXAPARIN 150MG/ML SYR SUBCUT SCH (08:02)
[2021-05-02 08:10] LABS: BG BASE EXCESS -12.9 mmol/L (-2.0-2.0); BG CARBOXYHEMOGLOBIN 1.4 % (0.5-1.5); BG DEOXYHEMOGLOBIN 11.7 % (0.0-5.0); BG METHEMOGLOBIN 0.4 % (0.0-1.5); BG OXYGEN SATURATION 88.1 % (92.0-98.5); BG OXYHEMOGLOBIN 86.5 % (94.0-97.0); BG PCO2 42.6 mmHg (35.0-45.0); BG PH 7.164 (7.350-7.450); BG PO2 72.1 mmHg (75.0-100.0); BG SAMPLE SITE RIGHT RADIAL; BG TOTAL HEMOGLOBIN 9.6 g/dL (12.0-18.0); BG VENT MODE VENT - P/C
[2021-05-02 08:37] LABS: HEMATOCRIT. 29.1 % (36.0-48.0); HEMOGLOBIN. 8.6 g/dL (12.0-16.0); MEAN CORPUSCULAR HEMOGLOBIN 28.5 pg (28.0-32.0); MEAN CORPUSCULAR VOLUME 96.2 fL (81.0-99.0); MEAN PLATELET VOLUME 11.2 fl (7.4-10.4); PLATELET 103 x1000/uL (130-400); RED BLOOD CELL COUNT 3.03 mill/uL (4.2-5.4); RED CELL DISTRIBUTION WIDTH 16.8 % (11.6-14.6)
[2021-05-02 08:52] LABS: CHLORIDE 101 mEq/L (98-107)
[2021-05-02 09:27] LABS: PHOSPHORUS 9.2 mg/dL (2.5-4.9)
[2021-05-02 10:09] LABS: NUCLEATED RED BLOOD CELLS 31 /100 WBC
[2021-05-02 10:10] LABS: PLATELET ESTIMATE SLIGHTLY DECREASED
[2021-05-02] MEDS ORDERED: VANCOMYCIN 2,000 MG in DEXT 5% WATER 500 ML IV SCH (15:00)
[2021-05-02] MEDS ORDERED: MEROPENEM 1,000 MG in SODIUM CHLORIDE 0.9% 100 ML IV SCH (21:00)
[2021-05-03] MEDS ORDERED: ENOXAPARIN 150MG/ML SYR SUBCUT SCH (09:00)
[2021-05-03] MEDS ORDERED: VANCOMYCIN 1,750 MG in DEXT 5% WATER 500 ML IV SCH (15:00)
== END 2021-05-02 15:30 | DRG 720 ==
LOC: ER 15:31 → 7WST 18:18 → ENRESERV 20:38 → MICUSO 04-16 11:30 → MICUNO 04-26 13:00
PROVIDERS: ADMIT Internal Medicine; ATTEND Internal Medicine
PROC: 5A09557 Assistance with Respiratory Ventilation, Greater than 96 Consecutive Hours, Continuous Positive Airway Pressure (ICD-10-PCS; 2021-04-08)
PROC: 05H533Z Insertion of Infusion Device into Right Subclavian Vein, Percutaneous Approach (ICD-10-PCS; 2021-04-09)
PROC: B546ZZA Ultrasonography of Right Subclavian Vein, Guidance (ICD-10-PCS; 2021-04-09)
PROC: 5A0935A Assistance with Respiratory Ventilation, Less than 24 Consecutive Hours, High Flow/Velocity Cannula (ICD-10-PCS; 2021-04-15)
PROC: 5A09457 Assistance with Respiratory Ventilation, 24-96 Consecutive Hours, Continuous Positive Airway Pressure (ICD-10-PCS; 2021-04-15)
PROC: 5A1955Z Respiratory Ventilation, Greater than 96 Consecutive Hours (ICD-10-PCS; 2021-04-17)
PROC: 0BH17EZ Insertion of Endotracheal Airway into Trachea, Via Natural or Artificial Opening (ICD-10-PCS; 2021-04-17)
PROC: 0W9B30Z Drainage of Left Pleural Cavity with Drainage Device, Percutaneous Approach (ICD-10-PCS; principal; 2021-04-18)
PROC: 0W9B30Z Drainage of Left Pleural Cavity with Drainage Device, Percutaneous Approach (ICD-10-PCS; 2021-04-28)
PROC: 0W9B30Z Drainage of Left Pleural Cavity with Drainage Device, Percutaneous Approach (ICD-10-PCS; 2021-04-28)
PROC: 02HV33Z Insertion of Infusion Device into Superior Vena Cava, Percutaneous Approach (ICD-10-PCS; 2021-05-01)
PROC: B548ZZA Ultrasonography of Superior Vena Cava, Guidance (ICD-10-PCS; 2021-05-01)
DX: A41.89 Other specified sepsis (principal); N17.0 Acute kidney failure with tubular necrosis; J12.82 Pneumonia due to coronavirus disease 2019; J80 Acute respiratory distress syndrome; R65.21 Severe sepsis with septic shock; G93.41 Metabolic encephalopathy; E43 Unspecified severe protein-calorie malnutrition; U07.1 COVID-19; G93.1 Anoxic brain damage, not elsewhere classified; Z66 Do not resuscitate; D68.59 Other primary thrombophilia; J93.83 Other pneumothorax; T85.698A Other mechanical complication of other specified internal prosthetic devices, implants and grafts, initial encounter; E87.5 Hyperkalemia; J98.2 Interstitial emphysema; E87.0 Hyperosmolality and hypernatremia; E87.1 Hypo-osmolality and hyponatremia; E66.01 Morbid (severe) obesity due to excess calories; B37.49 Other urogenital candidiasis; Y83.8 Other surgical procedures as the cause of abnormal reaction of the patient, or of later complication, without mention of misadventure at the time of the procedure; Y92.238 Other place in hospital as the place of occurrence of the external cause; E87.3 Alkalosis; Z82.49 Family history of ischemic heart disease and other diseases of the circulatory system; Z71.3 Dietary counseling and surveillance; Z68.43 Body mass index [BMI] 50.0-59.9, adult
CPT/HCPCS: 31500; 36415; 36556; 36600; 71045; 73590; 74018; 76937; 80048; 80053; 80076; 80202; 81003; 82306; 82375; 82550; 82553; 82728; 82805; 82962; 83036; 83605; 83735; 83880; 83935; 84100; 84132; 84145; 84478; 84484; 85025; 85379; 86140; 86705; 86709; 86803; 86850; 86900; 87070; 87106; 87340; 87426; 93005; 93306; 94002; 94003; 94640; 94660; 99291; A6261; C1725; C1752; C1893; J0330; J0456; J0610; J0696; J0780; J1100; J1200; J1265; J1650; J1815; J1940; J2060; J2185; J2250; J2270; J2370; J2405; J2704; J2765; J3010; J3370; J3480; J3490; J7030; J7040; J7042; J7050; J7060; J7070; P9047; U0003; U0005; A4315